=== PATIENT | male | born 1980 | race Caucasian/White ===

== ENCOUNTER 2019-04-29 05:11 | Emergency (ER) | payer BC, SELFPAY ==
[2019-04-29 05:16] VITALS: BP 174/107; PULSE 78; RESP 18; O2SAT 96; BMI 36.9
--- NOTE | 2019-04-29 05:26 | PC.NURSE ---
PATIENT STATES THAT HE WOKE UP AT 0330 TODAY WITH SEVERE BACKPAIN IN HIS LOWER LEFT SIDE OF HIS BACK. PATIENT STATES HE WAS HAVING NUMBNESS IN HIS LEFT FOOT AND TOES. PATIENT STATES HE HAS BEEN HAVING WEAKNESS ALSO IN HIS LOWER EXTREMITIES. PATIENT STATES HE HAS HAD BACK ISSUES SINCE HE WAS A TEENAGER. PATIENT STATES HE DOESN'T KNOW WHAT HAS CAUSED THE PAIN BUT THAT IT IS CHRONIC AND IT HAS NOT BEEN RESOLVED.
[2019-04-29 05:29] VITALS: BP 150/113; PULSE 77; RESP 17; O2SAT 96
--- NOTE | 2019-04-29 05:56 | W.ED.BACK ---
HPI - Back Pain/Injury General: Chief Complaint: Back Pain/Injury Stated Complaint: BACK PAIN Time Seen by Provider: 04/29/19 05:19 History of Present Illness: HPI Narrative: 38-year-old male with a history of back pain presents with sudden onset yesterday of radicular back pain down the left lower extremity. He is having pain into his toes. It was worse this morning. No significant weakness. No loss of bowel or bladder function. Severity: similar to previous episodes Similar Symptoms Previously: Yes Quality: sharp Location: lumbar spine Radiation: left leg below the knee Associated symptoms: Deny abdominal pain, chills, dysuria, fever(s), hematuria, nausea, urinary urgency or vomiting Review of Systems Const: Denies: fever or chills Eyes: Denies: change in vision or blurry vision Card: Denies: chest pain, palpitations, irregular heart rhythm, edema, swelling of feet/ankles, shortness of breath on exertion or shortness of breath when lying down Resp: Denies: shortness of breath, productive cough, non-productive cough or wheezing GI: Denies: abdominal pain, nausea, vomiting, rectal pain, blood in stool or black tarry stool : Denies: difficulty urinating, painful urination, urinary frequency, urinary urgency or blood in urine Musc: Denies: neck pain, back pain, redness or joint warmth Skin/Breast: Denies: rash, itching or redness Neuro: Denies: headache, dizziness, vertigo, confusion or seizure-like activity PFSH ED PFSH: Statuses (acute, chronic, etc) shown below reflect problem list status as previously entered and may not be historically accurate Social History Smoking and tobacco status: never smoked Physical Exam Const: GENERAL APPEARANCE: well developed ORIENTATION/CONSCIOUSNESS: Yes oriented to person, Yes oriented to place and Yes oriented to time HENMT: COMMON NORMALS: normocephalic, external ears normal and external nose normal HEAD & SCALP: normocephalic; no scalp tenderness FACE & SINUS: normal facial exam NOSE: external nose normal and no nasal discharge EXTERNAL EAR: Yes external ears normal THROAT: posterior oropharynx normal; no peritonsillar mass Eye: COMMON NORMALS: PERRL, EOMs intact bilaterally and conjunctivae normal EYELID: eyelids normal CONJUNCTIVA: Yes conjunctivae normal PUPIL: Yes PERRL Neck/C-Spine: COMMON NORMALS: full ROM GENERAL: No tracheal deviation CERVICAL SPINE: Yes normal cervical lordosis and No cervical spine tenderness Chest: COMMONS NORMALS: inspection of chest normal CHEST: No tenderness Resp: COMMON NORMALS: clear to auscultation bilaterally EFFORT & INSPECTION: No tachypneic, No respiratory distress, No retractions, No uses accessory muscles and No tracheal deviation AUSCULTATION: clear to auscultation bilaterally, no rhonchi, no wheezes and lung sounds not diminished Cardio: COMMON NORMALS: regular rate and regular rhythm RATE: regular rate RHYTHM: regular rhythm HEART SOUNDS: no murmurs PERIPHERAL PULSES: radial pulses present GI: INSPECTION: No abdominal distension AUSCULTATION: No hyperactive bowel sounds and No hypoactive bowel sounds PALPATION: No guarding and No rigid PERCUSSION: no dullness to percussion and no tympanic to percussion : COMMON NORMALS: Yes no CVA tenderness BLADDER/KIDNEY EXAM: Yes no CVA tenderness Back/Pelvis: COMMON NORMALS: no CVA tenderness OTHER: Tenderness just left of midline at L4-5. Positive straight leg raise test on the left with some symptoms with SLR on the right as well. Neuro: SENSORIUM/ORIENTATION: Yes oriented to person, Yes oriented to place and Yes oriented to time Psych: COMMON NORMALS: mental status grossly normal Skin: COMMON NORMALS: no rashes or lesions noted GENERAL SKIN EXAM: no rashes or lesions noted Course ED course: Acute lumbar radiculopathy in a patient with prior episodes. Upon further questioning, this patient has an MRI of the lumbar spine scheduled tomorrow. He will be given pain medication, steroid burst for radicular pain, and told to follow-up for his MRI. Vital Signs: Vital signs: Vital Signs Pulse Rate 77 04/29/19 07:01 Respiratory Rate 18 04/29/19 07:01 Blood Pressure 152/101 04/29/19 07:01 Pulse Oximetry 97 04/29/19 07:01 Discharge Plan Discharge Patient Disposition: Home, Self-Care Clinical Impression: Lumbar radiculopathy Condition: Stable Prescriptions: New Medrol (Surjit) 4 mg tablets,dose pack See Rx Instructions .ROUTE .COMPLEX Qty: 21 RF: 0 Percocet 7.5-325 mg tablet 1 tab PO Q6H PRN (Reason: pain) Qty: 14 RF: 0 No Action levothyroxine 175 mcg Tablet 175 mcg PO DAILY RF: 0 Discharge Orders: Discharge Order (Routine); Ordered 04/29/19 Ordered By: Paresh Manzanares Referrals: Fantasma Barreto [Family Provider] - Discharge Diet: Usual diet Discharge Activity: Limit activity as instructed Patient Instructions: Lumbar Disc Herniation (ED) Activity Restrictions/Additional Instructions: Be sure to get your MRI tomorrow. Return for loss of control of the function of your bowel or bladder. Return for fever greater than 100, inability to bear any weight, other concerning symptoms. Interventions: ED Discharge Assessment Last Done: 04/29/19 07:01 Discharge Date/Time: 04/29/19 07:00 Coding Level of Care Code ED Vocal Music Instructor for Baldemar Posada
[2019-04-29 06:32] VITALS: RESP 17
[2019-04-29] MEDS: HYDROmorphone 1 mg/mL INJ 1 mL 2 MG IM (06:32)
[2019-04-29] MEDS: ketorolac 60 mg/2 mL INJ IM (06:32)
[2019-04-29] MEDS: predniSONE 20 mg Tablet 40 MG PO (06:33)
[2019-04-29 06:35] VITALS: BP 157/106; PULSE 76; RESP 16; O2SAT 93
[2019-04-29 07:01] VITALS: BP 152/101; PULSE 77; RESP 18; O2SAT 97
== END 2019-04-29 07:00 | disposition home or self-care (01) ==
PROVIDERS: Emergency Provider Emergency Medicine; Family Provider Family Medicine
DX: M54.16 Radiculopathy, lumbar region (principal)
CPT/HCPCS: 96372; 99281; 99283; J1170; J1885; J7512

== ENCOUNTER 2019-04-30 11:43 | Outpatient (CLI) | payer BC, SELFPAY ==
--- NOTE | 2019-04-30 11:45 | MR_ITS ---
WS: [id number] MRI LUMBAR SPINE NONCONTRAST TECHNIQUE: Sagittal T1, T2 and STIR imaging. Axial T1 and T2 imaging. CLINICAL INFORMATION: RADICULOPATHY/LUMBAR PAIN RADIATING INTO BUTTOCKS COMPARISON: None. FINDINGS: Mild lumbar curve. No acute compression. Left pericentral disc extrusion L4-5 impinges the left subar ticular recess with mild central canal stenosis. Extruded disc material measures 8 mm. L1-L2: Normal. L2-L3: Mild annular bulging. Mild facet arthropathy. Spinal canal and foramen are patent. L3-L4: Mild annular bulging. Mild facet arthropathy. Spinal canal and foramen are patent. L4-L5: Left pericentral disc extrusion measuring 8 mm. This impinges the left subarticular recess and traversing left L5 nerve root. Mild central canal stenosis. Mild proximal left foraminal narrowing. Right foramen is patent. Mild facet arthropathy. L5-S1: L5 is partially sacralized. Spinal canal and foramen are patent. Mild facet arthropathy. Visualized pelvic bony structures: Normal. Paravertebral soft tissues: Normal. MR/MR lumbar spine wo con* [id number] IMPRESSION: 1. Left pericentral and subarticular disc extrusion L4-5 impinges the left sub articular recess and traversing left L5 nerve root. Mild central canal stenosis . Mild proximal left foraminal narrowing. 2. Slight cephalad migration of the left L4-5 disc extrusion. 3. L5 is partially sacralized. 4. No other significant findings.
== END 2019-04-30 11:44 | disposition home or self-care (01) ==
LOC: RADSHAW 11:43
PROVIDERS: Family Provider Family Medicine; PCP Family Medicine; Visit Provider Family Medicine
DX: M51.26 Other intervertebral disc displacement, lumbar region (principal)
CPT/HCPCS: 72148

== ENCOUNTER 2019-05-24 17:42 | Emergency (ER) | payer BC, SELFPAY ==
[2019-05-24 17:49] VITALS: BP 177/127; PULSE 98; RESP 18; O2SAT 99; BMI 35.6
[2019-05-24 18:17] VITALS: BP 151/102; PULSE 96; RESP 18; O2SAT 97
--- NOTE | 2019-05-24 18:20 | ECG_ITS ---
Measurements Intervals [place] Rate: 94 P: 31 SD: 148 QRS: 99 QRSD: 99 T: 19 QT: 328 QTc: 410 SINUS RHYTHM BORDERLINE RIGHT AXIS DEVIATION [QRS AXIS > 90] No previous ECG available for comparison Electronically Signed On 05-24-2019 21:20:07 PHARMACY PICKING TECH by Shelbi Estrada M.D. [id number] f
--- NOTE | 2019-05-24 18:20 | XRR_ITS ---
PROCEDURE INFORMATION: Exam: XR Chest, 2 Views Exam date and time: 05/24/2019 6:55 PM Age: 38 years old Clinical indication: Shortness of breath; Additional info: Cp/sob TECHNIQUE: Imaging protocol: XR of the chest Views: 2 views. COMPARISON: No relevant prior studies available. FINDINGS: Lungs: Unremarkable. No consolidation. Pleural space: Unremarkable. No pleural effusion. No pneumothorax. Heart/Mediastinum: Unremarkable. No cardiomegaly. Bones/joints: Unremarkable. XR/XR chest 2V* [id number] IMPRESSION: No acute findings.
--- NOTE | 2019-05-24 18:21 | W.ED.CHESTPA ---
HPI - Chest Pain General: Chief Complaint: Chest Pain Stated Complaint: CP Time Seen by Provider: 05/24/19 18:12 History of Present Illness: HPI narrative: Patient comes in complaining about some shortness of breath the last 3 to 4 days and headache. Was here in April 29 for back and leg pain. Has been in the ER in [place] he said 2 or 3 times the last couple weeks for back pain and leg pain. Says that some time he takes deep breath it hurts on the right side of his chest the last couple days. Says blood pressures been up each time she is been to the ER. Says he has herniated disc in his low back. Patient does not take blood pressure medicine and he said he recently had a cortisone shot that worked for about a week to help his leg and back pain. Patient also complains about pain in his chest sometimes after he eats couple hours afterward this is gone up on for quite a while been been worse last couple weeks. And this pain that he had in his right chest they seem to be 2 hours after eating. 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 MD complaint: chest pain Onset (ago): day(s) Timing of current episode: episodic Prior episodes: Yes Pain location: right chest Pain radiation: none Severity: mild Quality: shooting Exacerbating factors: nothing Context: new medications Associated symptoms: Reports dyspnea; Deny abdominal pain, fever(s), nausea or vomiting Review of Systems Const: Denies: fever, chills or body aches Eyes: Denies: change in vision or blurry vision ENMT: Denies: throat pain or nasal congestion Card: Reports: chest pain; Denies: shortness of breath on exertion Resp: Reports: shortness of breath GI: Denies: abdominal pain, nausea or vomiting : Denies: difficulty urinating Musc: Denies: extremity pain Skin/Breast: Denies: rash Neuro: Denies: headache Psych: Denies: anxiety or depression Natan/Lymph: Denies: easy bruising PFSH ED PFSH: Social History Smoking and tobacco status: never smoked Physical Exam Const: COMMON NORMALS: no apparent distress, average body habitus and oriented x3 HENMT: COMMON NORMALS: normocephalic HEAD & SCALP: normal to inspection and normocephalic FACE & SINUS: normal facial exam Eye: COMMON NORMALS: conjunctivae normal GENERAL EYE: normal appearance of both eyes CONJUNCTIVA: Yes conjunctivae normal Neck/C-Spine: COMMON NORMALS: no JVD Chest: COMMONS NORMALS: inspection of chest normal Resp: COMMON NORMALS: normal respiratory effort and clear to auscultation bilaterally AUSCULTATION: clear to auscultation bilaterally Cardio: COMMON NORMALS: no JVD, regular rate and regular rhythm RATE: regular rate RHYTHM: regular rhythm GI: COMMON NORMALS: normal to inspection, nondistended, normoactive bowel sounds Extremity: COMMON NORMALS: normal to inspection and full ROM Neuro: COMMON NORMALS: oriented x3 Course Vital Signs: Vital signs: Vital Signs Pulse Rate 77 05/24/19 18:35 Respiratory Rate 18 05/24/19 18:35 Blood Pressure 138/81 05/24/19 18:35 Pulse Oximetry 98 05/24/19 18:35 MDM - Chest Pain MDM Narrative: Medical decision making narrative: Discussed case with Dr. Parra Lab Data: Labs: Lab Results 05/24/19 05/24/19 05/24/19 Range/Units 18:30 18:30 18:30 WBC 8.3 (4.0-10.0) 10^3/ uL RBC 5.66 H (4.1-5.3) 10^6/u L Hgb 17.3 H (11.7-16.6) g/dL Hct 49.4 (42.0-52.0) % MCV 87.3 (80-94) fL MCH 30.6 (28.0-34.0) pg MCHC 35.0 (30.0-36.0) g/dL RDW 12.1 (12.1-15.1) % Plt Count 264 (130-400) 10^3/c mm MPV 10.3 (7.4-10.4) fL Neut % (Auto) 69.9 % Lymph % (Auto) 13.0 % [place] % (Auto) 13.1 % Eos % (Auto) 2.7 % Baso % (Auto) 0.8 % Neut # (Auto) 5.8 (1.8-7.7) 10^3/u L Lymph # (Auto) 1.1 (0.8-4.8) 10^3/u L [place] # (Auto) 1.1 H (0.2-0.9) 10^3/u L Eos # (Auto) 0.2 (0.0-0.8) 10^3/u L Baso # (Auto) 0.1 (0.0-0.1) 10^3/u L Nucleated RBC % (a uto) 0 % Nucleated RBCs # 0.0 /100WBC Sodium 136 (136-145) mmol/L Potassium 3.8 (3.5-5.1) mmol/L Chloride 99 (98-107) mmol/L Carbon Dioxide 24 (22-29) mmol/L Anion Gap 16.8 (5-19) BUN 17 (6-20) mg/dL Creatinine 1.2 (0.7-1.2) mg/dL GFR Calculation 67.8 L (90-130) mL/min Glucose 82 (65-115) mg/dL Calcium 10.0 (8.5-10.5) mg/dL Total Bilirubin 0.3 (0.15-1.2) mg/dL AST 24 (0-40) U/L ALT 46 H (0-41) U/L Alkaline Phosphata se 64 (40-130) IU/L Troponin T Gen 5 n g/L 10 (0-15) ng/mL Total Protein 7.1 (6.6-8.7) g/dL Albumin 4.6 (3.5-5.2) g/dL Globulin 2.5 (1.3-4.6) g/dL EKG Data^: EKG 1: EKG interpretation date: 05/24/19 Interpretation: NSR, 0 Acute signed off by Dr. Tiwari Discharge Plan Discharge Patient Disposition: Home, Self-Care Clinical Impression: Atypical chest pain, Anxiety, Chest pain due to GERD Condition: Stable Prescriptions: New metoprolol succinate 25 mg capsule,sprinkle,ER 24hr 25 mg PO DAILY Qty: 14 RF: 0 Prilosec OTC 20 mg tablet,delayed release (DR/EC) 20 mg PO DAILY Qty: 30 RF: 0 No Action levothyroxine 175 mcg Tablet 175 mcg PO DAILY RF: 0 Multiple Vitamins Tablet 1 tab PO DAILY RF: 0 aspirin 325 mg Tablet 325 mg PO BID PRN (Reason: Pain) RF: 0 Discharge Orders: Discharge Order (Routine); Ordered 05/24/19 Ordered By: Toy Jones Referrals: Fantasma Barreto [Primary Care Provider] - Coding Level of Care Code ED Leadership Development Instructor for Chg Fwd Exam Comprehensive
[2019-05-24 18:35] VITALS: BP 138/81; PULSE 77; RESP 18; O2SAT 98
[2019-05-24 18:43] LABS: Basophils # 0.1 10^3/uL (0.0-0.1); Basophils % 0.8 %; Eosinophils # 0.2 10^3/uL (0.0-0.8); Eosinophils % 2.7 %; Hematocrit 49.4 % (42.0-52.0); Hemoglobin 17.3 g/dL (11.7-16.6); Lymphocytes # 1.1 10^3/uL (0.8-4.8); Mean Corpuscular Hemoglobin 30.6 pg (28.0-34.0); Mean Corpuscular Volume 87.3 fL (80-94); Mean Platelet Volume 10.3 fL (7.4-10.4); Monocytes # 1.1 10^3/uL (0.2-0.9); Monocytes % 13.1 %; Neutrophils # 5.8 10^3/uL (1.8-7.7); Neutrophils % 69.9 %; Nucleated Red Blood Cells % 0 %; Platelet Count 264 10^3/cmm (130-400); Red Blood Count 5.66 10^6/uL (4.1-5.3); Red Cell Distribution Width 12.1 % (12.1-15.1); White Blood Count 8.3 10^3/uL (4.0-10.0)
[2019-05-24 19:00] VITALS: BP 136/77; PULSE 76; RESP 17; O2SAT 97
[2019-05-24 19:02] LABS: Alanine Aminotransferase 46 U/L (0-41); Albumin Level 4.6 g/dL (3.5-5.2); Alkaline Phosphatase 64 IU/L (40-130); Anion Gap 16.8 (5-19); Aspartate Amino Transferase 24 U/L (0-40); Blood Urea Nitrogen 17 mg/dL (6-20); Carbon Dioxide 24 mmol/L (22-29); Chloride 99 mmol/L (98-107); Globulin 2.5 g/dL (1.3-4.6); Glomerular Filtration Rate 67.8 mL/min (90-130); Glucose 82 mg/dL (65-115); Potassium 3.8 mmol/L (3.5-5.1); Sodium 136 mmol/L (136-145); Total Bilirubin 0.3 mg/dL (0.15-1.2); Total Protein 7.1 g/dL (6.6-8.7)
[2019-05-24 19:05] LABS: Troponin T (5th) Once 10 ng/mL (0-15)
--- NOTE | 2019-05-24 19:22 | PC.NURSE ---
Introduced self to patient and initiated vital signs. Patient presents A&O x 4. NAD, ABCs intact, MAEW and agreeable to treatment. Respirations are even and unlabored. Pt states that the chief complaint for the ER visit today is due toa chest pain and elevated BP. IV observed in right AC. Pt denies any vision disturbances or lightheadedness. Bed left in lowest position in semi-fowlers with side rails up.Reassured patient of needs and will continue to monitor.
[2019-05-24 19:36] VITALS: BP 153/86; PULSE 77; RESP 16; O2SAT 96
== END 2019-05-24 19:36 | disposition home or self-care (01) ==
PROVIDERS: Emergency Provider Nurse Practitioner Family; Family Provider Family Medicine; PCP Family Medicine
DX: K21.9 Gastro-esophageal reflux disease without esophagitis (principal); F41.9 Anxiety disorder, unspecified
CPT/HCPCS: 36415; 71046; 80053; 84484; 85025; 93005; 99282; 99283

== ENCOUNTER 2020-03-15 08:33 | Emergency (ER) | payer BC, SELFPAY ==
[2020-03-15 08:40] VITALS: BP 160/98; PULSE 82; RESP 18; TEMP 36.3; O2SAT 95; BMI 38.2
--- NOTE | 2020-03-15 08:40 | ED_ITS ---
HPI - Chest Pain General: Chief Complaint: Chest Pain Stated Complaint: RIB/CHEST PAIN Time Seen by Provider: 03/15/20 08:39 Source: patient Mode of arrival: ambulatory Limitations: no limitations History of Present Illness: HPI narrative: 39-year-old male patient comes in with midepigastric abdominal pain that has been waxing and waning over the last 3 months. Patient is seen his primary care provider but continues to have discomfort. Patient has a history of abdominal surgeries including a cholecystectomy, partial colectomy due to trauma. Patient takes medicines for hypothyroidism. Patient has been tried on some steroids and medications for GERD with minimal to no relief. Associated symptoms: Reports abdominal pain Review of Systems General: Reports: 10 or more systems reviewed and unremarkable except in HPI and below GI: Reports: abdominal pain PFSH ED PFSH: Social History Smoking and tobacco status: never smoked Physical Exam Const: COMMON NORMALS: no acute distress and patient oriented x3 GENERAL APPEARANCE: cooperative HENMT: COMMON NORMALS: normocephalic and Normal external nose present HEAD & SCALP: normal to inspection and normocephalic NOSE: Normal external nose present MOUTH: Normal oral and palatal mucosa present Eye: GENERAL EYE: appearance normal, both eyes and all related structures Neck/C-Spine: COMMON NORMALS: full ROM Lymph: LYMPHATIC: no lymphadenopathy noted Chest: COMMONS NORMALS: normal inspection of the chest Resp: COMMON NORMALS: normal respiratory effort EFFORT & INSPECTION: Yes able to speak in complete sentences Cardio: COMMON NORMALS: regular rate and regular rhythm RATE: regular rate RHYTHM: regular rhythm GI: INSPECTION: Yes other (scar to left lower abd 2nd to colectomy) AUSCULTATION: Yes normoactive bowel sounds PALPATION: Yes Tenderness to palpation present (GI) (epigastric) Back/Pelvis: COMMON NORMALS: thoracic and lumbar spine normal to inspection Extremity: COMMON NORMALS: normal to inspection Neuro: COMMON NORMALS: patient oriented x3 and moves all extremities Psych: COMMON NORMALS: mental status grossly normal and cooperative Skin: COMMON NORMALS: no rashes or lesions noted GENERAL SKIN EXAM: no rashes or lesions noted Course Vital Signs: Vital signs: Vital Signs Temperature 97.3 F L 03/15/20 08:40 Pulse Rate 75 03/15/20 10:25 Respiratory Rate 18 03/15/20 10:25 Blood Pressure 124/85 03/15/20 10:25 Pulse Oximetry 95 03/15/20 10:25 MDM - Chest Pain MDM Narrative: Medical decision making narrative: 39-year-old male comes in with epigastric tenderness and pain. Patient also reports some abdominal bloating. Exam notes abdomen is soft epigastric tenderness is noted. Skin is warm and dry. Vital signs are normal. Differential diagnosis includes not limited to gastritis, hiatal hernia, pancreatitis, bowel obstruction. Laboratory values were unremarkable. CT scan of the abdomen and pelvis noted incidental 1 mm nodule to the right lung, some gastritis, diverticulosis, and surgical changes for cholecystectomy and bowel resection. Reviewed exam with patient recommended treatment for gastritis. Patient reported understanding agreed to plan with need for follow-up. Lab Data: Labs: Lab Results 03/15/20 03/15/20 Range/Units 09:23 09:23 WBC 4.6 (4.0-10.0) 10^3/ uL RBC 5.33 H (4.1-5.3) 10^6/u L Hgb 16.0 (11.7-16.6) g/dL Hct 48.0 (42.0-52.0) % MCV 90.1 (80-94) fL MCH 30.0 (28.0-34.0) pg MCHC 33.3 (30.0-36.0) g/dL RDW 11.7 L (12.1-15.1) % Plt Count 174 (130-400) 10^3/c mm MPV 10.8 H (7.4-10.4) fL Neut % (Auto) 70.9 % Lymph % (Auto) 13.6 % [place] % (Auto) 11.4 % Eos % (Auto) 2.6 % Baso % (Auto) 1.3 % Neut # (Auto) 3.28 (1.8-7.7) 10^3/u L Lymph # (Auto) 0.6 L (0.8-4.8) 10^3/u L [place] # (Auto) 0.5 (0.2-0.9) 10^3/u L Eos # (Auto) 0.1 (0.0-0.8) 10^3/u L Baso # (Auto) 0.1 (0.0-0.1) 10^3/u L Nucleated RBC % (a uto) 0 % Nucleated RBCs # 0.0 /100WBC Sodium 138 (136-145) mmol/L Potassium 4.2 (3.5-5.1) mmol/L Chloride 104 (98-107) mmol/L Carbon Dioxide 27 (22-29) mmol/L Anion Gap 11.2 (5-19) BUN 13 (6-20) mg/dL Creatinine 1.1 (0.7-1.2) mg/dL Glucose 106 (65-115) mg/dL Calculated Osmolal ity 287 (285-295) mOsm/k g Calcium 9.2 (8.5-10.5) mg/dL Total Bilirubin 0.3 (0.15-1.2) mg/dL AST 36 (0-40) U/L Alkaline Phosphata se 58 (40-130) IU/L Total Protein 6.6 (6.6-8.7) g/dL Albumin 4.0 (3.5-5.2) g/dL Globulin 2.6 (1.3-4.6) g/dL Lipase 34 (13-60) U/L EKG Data^: EKG 1: Attestation: I personally reviewed and interpreted this EKG as follows: (EKG read at 850, sinus rhythm, normal EKG, regular rate at 78 bpm, no ectopy or ST elevation. No prior exam was available for comparison.) Discharge Plan Discharge Patient Disposition: Home Clinical Impression: Gastritis Qualifiers: Gastritis type: unspecified gastritis Chronicity: unspecified Gastritis bleeding: without bleeding Qualified Code(s): K29.70 - Gastritis, unspecified, without bleeding Condition: Stable Prescriptions: New omeprazole 40 mg capsule,delayed release(DR/EC) 40 mg PO DAILY 28 Days Qty: 28 RF: 0 No Action levothyroxine 175 mcg Tablet 175 mcg PO DAILY RF: 0 Multiple Vitamins Tablet 1 tab PO DAILY RF: 0 aspirin 325 mg Tablet 325 mg PO BID PRN (Reason: Pain) RF: 0 metoprolol succinate 25 mg capsule,sprinkle,ER 24hr 25 mg PO DAILY Qty: 14 RF: 0 Prilosec OTC 20 mg tablet,delayed release (DR/EC) 20 mg PO DAILY Qty: 30 RF: 0 Discharge Orders: Discharge ED (Routine); Ordered 03/15/20 Ordered By: Carlos Mcclendon Referrals: Fantasma Barreto [Primary Care Provider] - Discharge Diet: Usual diet Discharge Activity: Resume usual activity Patient Instructions: Diet for Ulcers and Gastritis (ED) Activity Restrictions/Additional Instructions: Take medication in the morning prior to breakfast. Drink plenty of fluids. Activity as tolerated. Follow-up with primary care for further treatment and evaluation. Return to the emergency department for new concerns. Coding Level of Care Code ED Captain Fire Prevention [employer] for Baldemar Posada Exam Comprehensive
--- NOTE | 2020-03-15 08:46 | ECG_ITS ---
[facility] Test Date: 2020-03-15 Pat Name: Shade Ribeiro Department: Room: Gender: Male Radio Interference Trouble Shooter: : 1980 Requested By: Carlos Tellez Order Number: [id number] Scott MD: Shelbi Estrada M.D. Measurements Intervals [place] Rate: 78 P: 25 MA: 195 QRS: 49 QRSD: 103 T: 11 QT: 362 QTc: 413 Interpretive Statements SINUS RHYTHM Compared to ECG 05/24/2019 17:53:17 No significant changes Electronically Signed On 03-15-2020 21:58:16 DINING CAR HOP by Shelbi Estrada M.D. [id number] f
[2020-03-15 08:47] VITALS: BP 142/88; PULSE 79; RESP 18; O2SAT 96
--- NOTE | 2020-03-15 08:47 | CTR_ITS ---
PROCEDURE INFORMATION: Exam: CT Abdomen And Pelvis With Contrast Exam date and time: 03/15/2020 9:03 AM Age: 39 years old Clinical indication: Abdominal pain; Epigastric; Prior surgery; Surgery date: 6+ months; Surgery type: HX of 8 colon removal d/t trauma, gb, appy; Additional info: Epigastric abd pain TECHNIQUE: Imaging protocol: Computed tomography of the abdomen and pelvis with intravenous contrast. Radiation optimization: All CT scans at this facility use at least one of these dose optimization techniques: automated exposure control; mA and/or kV adjustment per patient size (includes targeted exams where dose is matched to clinical indication); or iterative reconstruction. Contrast material: OMNIPAQUE 300; Contrast volume: 95 ml; Contrast route: INTRAVENOUS (IV); COMPARISON: No relevant prior studies available. RADIATION DOSE METRICS: Total DLP (mGy-cm): 2012.93 FINDINGS: Lungs: Mild interstitial prominence. Multiple 1 mm right middle lobe nodules. For patients at low risk (minimal or absent history of smoking and of other known risk factors), no routine follow-up is indicated. For patients at high risk (history of smoking or of other known risk factors), consider optional CT Chest at 12 months. Liver: Fatty infiltration of the liver. Gallbladder and bile ducts: Status post cholecystectomy. Pancreas: No pancreatic mass or ductal dilatation. Spleen: Enlarged spleen measuring 14.4 cm in length. Adrenal glands: Unremarkable adrenals. Kidneys and ureters: 4.1 cm right renal cyst. No hydronephrosis. Stomach and bowel: Questionable wall thickening in the nondistended stomach. Localized bowel dilatation at the level of the ligament of Treitz postoperative change at the rectosigmoid junction. Diverticula, without pericolonic inflammation. Appendix: Status post appendectomy. Intraperitoneal space: No free fluid. No free fluid. Vasculature: Normal caliber of the abdominal aorta. Lymph nodes: Subcentimeter lymph nodes. Urinary bladder: Normal bladder morphology. Reproductive: Unremarkable as visualized. Bones/joints: Transitional vertebra at the lumbosacral junction. Disc bulging and mild degenerative change prior CT/CT abdomen pelvis w con* [id number] IMPRESSION: 1. No acute inflammatory process in the abdomen or pelvis. 2. Additional findings as described above. COMMENTS: Consistent with the [employer]'s Incidental Findings Committee white paper (J Am Rosemarie Radiol 2018): Any incidental renal lesion less than 1 cm or classified as too small to characterize, or any incidental cystic renal lesion characterized as simple-appearing, is likely benign. No follow-up imaging is recommended for these lesions per consensus recommendations based on imaging criteria. Radiation Dose CTDIVOL = (mGy): DLP = 2013.93 (mGy-cm)
[2020-03-15] MEDS: iohexol 300 mg/mL 100 mL Btl IV (09:12)
[2020-03-15 09:29] VITALS: BP 128/90; PULSE 73; RESP 95; O2SAT 95
[2020-03-15 09:52] LABS: Basophils # 0.1 10^3/uL (0.0-0.1); Basophils % 1.3 %; Eosinophils # 0.1 10^3/uL (0.0-0.8); Eosinophils % 2.6 %; Lymphocytes # 0.6 10^3/uL (0.8-4.8); Lymphocytes % 13.6 %; Mean Corpuscular HGB Conc 33.3 g/dL (30.0-36.0); Mean Corpuscular Volume 90.1 fL (80-94); Mean Platelet Volume 10.8 fL (7.4-10.4); Monocytes # 0.5 10^3/uL (0.2-0.9); Monocytes % 11.4 %; Neutrophils # 3.28 10^3/uL (1.8-7.7); Neutrophils % 70.9 %; Nucleated Red Blood Cells % 0 %; Platelet Count 174 10^3/cmm (130-400); Red Blood Count 5.33 10^6/uL (4.1-5.3); Red Cell Distribution Width 11.7 % (12.1-15.1); White Blood Count 4.6 10^3/uL (4.0-10.0)
[2020-03-15 10:25] VITALS: BP 124/85; PULSE 75; RESP 18; O2SAT 95
[2020-03-15 10:36] LABS: Alanine Aminotransferase 63 U/L (0-41); Alkaline Phosphatase 58 IU/L (40-130); Anion Gap 11.2 (5-19); Aspartate Amino Transferase 36 U/L (0-40); Blood Urea Nitrogen 13 mg/dL (6-20); Calcium 9.2 mg/dL (8.5-10.5); Carbon Dioxide 27 mmol/L (22-29); Chloride 104 mmol/L (98-107); Globulin 2.6 g/dL (1.3-4.6); Glomerular Filtration Rate 74.5 mL/min (90-130); Glucose 106 mg/dL (65-115); Lipase 34 U/L (13-60); Osmolality Calculated 287 mOsm/kg (285-295); Potassium 4.2 mmol/L (3.5-5.1); Sodium 138 mmol/L (136-145); Total Bilirubin 0.3 mg/dL (0.15-1.2); Total Protein 6.6 g/dL (6.6-8.7)
[2020-03-15 10:52] VITALS: BP 137/85; PULSE 67; RESP 18; TEMP 37.1; O2SAT 96
== END 2020-03-15 10:54 | disposition home or self-care (01) ==
PROVIDERS: Emergency Provider Nurse Practitioner Family; PCP Family Medicine
DX: K29.70 Gastritis, unspecified, without bleeding (principal); Z79.82 Long term (current) use of aspirin
CPT/HCPCS: 12345; 74177; 80053; 83690; 85025; 93005; 99283; Q9967

== ENCOUNTER 2020-06-14 07:29 | Emergency (ER) | payer OTHER, SELFPAY ==
[2020-06-14 07:30] VITALS: BP 150/90; PULSE 73; RESP 16; TEMP 36.5; O2SAT 97; BMI 34.7
--- NOTE | 2020-06-14 08:01 | W.ED.NECK ---
HPI - Neck Pain/Injury General: Chief Complaint: Neck Pain/Injury Stated Complaint: Neck Pain Time Seen by Provider: 06/14/20 07:39 Source: patient Mode of arrival: ambulatory Limitations: no limitations History of Present Illness: HPI Narrative: 39-year-old male complaining of right neck pain for the last 4 to 5 days. Sudden onset while at rest, associated with dizziness, nausea, vomiting, generalized weakness, and headache. No recent head or neck injury, car accident, or neck manipulation. He did have acupuncture performed on his right ear about a week ago, but there was no additional manipulation, massage, or abnormal positioning of his neck and head. He had similar symptoms several weeks ago, but it resolved almost immediately. The pain has continued to worsen, extends up to his right sabianist and occiput. He denies any facial weakness or numbness. He does have some paresthesias of the anterior portion of his tongue. No vision changes. No focal weakness or numbness in his extremities. He states he is generally not been feeling well for the last 3 to 4 months. He has had a 50 pound weight loss-has started a fairly restrictive diet, trying to get some relief from his chronic IBS type symptoms. He said he was recently diagnosed with alpha-gal, and has stopped eating all beef, but his symptoms have not really improved. Denies drug or alcohol use. No night sweats or fevers. No rash. MD complaint: neck pain Onset (ago): day(s) Associated symptoms: Reports dizziness, headache(s) and nausea; Denies dysphagia or difficulty walking Review of Systems General: Reports: 10 or more systems reviewed and unremarkable except in HPI and below Const: Reports: body aches, change in appetite, change in weight and fatigue; Denies: fever(s), chills, night sweats or diaphoresis Eyes: Denies: change in vision, blurry vision or blind spots ENMT: Denies: uvular edema, enlarged tonsils, odynophagia, swelling of lips/tongue, ear or mastoid pain, ear discharge, change in hearing or tinnitus Card: Denies: chest pain, palpitations, irregular heart rhythm or edema Resp: Denies: dyspnea, productive cough, wheezing or pain on inspiration GI: Reports: abdominal pain and nausea; Denies: vomiting, hematemesis, dysphagia, heartburn, diarrhea or constipation : Denies: difficulty urinating, dysuria or urinary frequency Musc: Reports: neck pain, joint pain, joint stiffness and muscle cramps; Denies: extremity pain, extremity swelling, joint swelling, joint redness or joint warmth Skin/Breast: Denies: rash, pruritus, erythema, skin pain, skin tenderness, skin swelling or sores Neuro: Reports: headache(s) and dizziness; Denies: numbness in extremities, weakness in extremities, lack of coordination, difficulty walking, frequent falls, vertigo or confusion Endo: Reports: tired all the time; Denies: polyuria or polydipsia Natan/Lymph: Denies: easy bruising, easy bleeding or petechiae All/Imm: Denies: urticaria or facial swelling PFSH ED PFSH: Medical History Abdominal pain Family History Denies family history of Anesthesia complication Bleeding disorder Social History Smoking and tobacco status: never smoked Physical Exam Const: COMMON NORMALS: patient oriented x3 GENERAL APPEARANCE: cooperative, well kempt and anxious; not lethargic, not ill appearing and not frail appearing NUTRITIONAL APPEARANCE: overweight ORIENTATION/CONSCIOUSNESS: Yes awake, Yes oriented to person, Yes oriented to place and Yes oriented to time; not lethargic HENMT: COMMON NORMALS: normocephalic, atraumatic, EAC's normal and Normal external nose present HEAD & SCALP: normocephalic and atraumatic FACE & SINUS: normal facial exam and face symmetric NOSE: Normal external nose present EXTERNAL EAR: Yes external ear abnormal (Several puncture wounds from acupuncture, within helix) Abnormal external ear present: other; no auricular hematoma and no auricular tenderness; no mastoids normal EXTERNAL AUDITORY CANAL: EAC's normal MOUTH: Normal oral and palatal mucosa present, lip normal, tongue normal and moist mucous membranes abnormal THROAT: posterior oropharynx normal, tonsils normal and uvula midline; no uvular edema Eye: COMMON NORMALS: negative for conjunctivae normal and no scleral icterus GENERAL EYE: proptosis (Right eye, baseline) VISUAL ACUITY: Yes visual acuity right eye (Light only, baseline) ALIGNMENT: No alignment normal and Yes other (Baseline) EYELID: abnormal eyelids and no eyelid abnormalities CONJUNCTIVA: No conjunctivae normal SCLERA: abnormal sclerae CORNEA: No corneas normal EOM: No movement deficit and No Nystagmus present Neck/C-Spine: COMMON NORMALS: full ROM, no lymphadenopathy, supple, no JVD and Thyroid normal GENERAL: No lymphadenopathy, Yes tender, No tracheal deviation and Yes Mass present (neck) THYROID: Thyroid normal CAROTIDS: Yes Carotid tenderness present Carotid tenderness laterality details: Right OTHER: Swelling/fullness of the right SCM as compared to the left. Lymph: LYMPHATIC: no lymphadenopathy noted Chest: COMMONS NORMALS: normal palpation of entire chest wall Resp: COMMON NORMALS: normal respiratory effort, No retractions, No use of accessory muscles and clear to auscultation bilaterally AUSCULTATION: clear to auscultation bilaterally Cardio: COMMON NORMALS: no JVD, regular rate and regular rhythm RATE: regular rate RHYTHM: regular rhythm GI: COMMON NORMALS: Normal to inspection, nondistended, normoactive bowel sounds present, Soft to palpation and non-tender PALPATION: Yes Soft to palpation Extremity: COMMON NORMALS: normal to inspection, full ROM and capillary refill normal Neuro: COMMON NORMALS: patient oriented x3, moves all extremities, no focal motor deficits and no sensory deficits noted SENSORIUM/ORIENTATION: Yes oriented to person, Yes oriented to place, Yes oriented to time and No lethargic SPEECH: speech normal GAIT: Yes Normal gait present MOTOR EXAM: 5/5 motor strength present throughout Psych: APPEARANCE: Yes well kempt MEMORY/COGNITION: Yes memory grossly intact and Yes cognition grossly intact INSIGHT: Good insight present (Psych) Skin: COMMON NORMALS: no rashes or lesions noted and turgor normal GENERAL SKIN EXAM: no rashes or lesions noted, turgor normal, ecchymosis and erythema Course Vital Signs: Vital signs: Vital Signs Temperature 97.7 F 06/14/20 07:30 Pulse Rate 98 06/14/20 11:36 Respiratory Rate 18 06/14/20 11:36 Blood Pressure 150/90 06/14/20 07:30 Pulse Oximetry 99 06/14/20 11:36 MDM - Neck Pain/Injury MDM Narrative: Medical decision making narrative: 39-year-old male with multiple symptoms worsening over the past several months, primarily coming to the ED today with right neck pain was sudden in onset about 4 to 5 days ago. No clear neuro deficits, however the patient had a lot of pain on palpation over the carotid artery on the right and is reporting subjective dizziness, headache etc., so CTA head and neck was done to rule out dissection, aneurysm, or other acute vascular problem. No acute abnormalities on baseline labs. CTA was negative for any acute abnormalities. Discussed all these results with the patient, recommended that he follow-up with his PCP for further work-up to try and get to the bottom of why he has been feeling so unwell for the past few months. Recommended that he return immediately to the ER if he has any worsening neuro symptoms such as difficulty with balance, sudden vision change, weakness and numbness of his arm, face, difficulty speaking, or any other sudden changes. Differential Diagnosis: Neck Differential Diagnosis: Likely vertebral artery dissection, torticollis and strain of neck muscle Medical Records: Attestation: I reviewed the patient's medical records. Lab Data: Attestation: I reviewed the patient's lab results. Labs: Lab Results 06/14/20 06/14/20 06/14/20 Range/Units 09:10 09:10 09:29 WBC 6.0 (4.0-10.0) 10^3/ uL RBC 5.89 H (4.1-5.3) 10^6/u L Hgb 17.7 H (11.7-16.6) g/dL Hct 53.1 H (42.0-52.0) % MCV 90.2 (80-94) fL MCH 30.1 (28.0-34.0) pg MCHC 33.3 (30.0-36.0) g/dL RDW 12.0 L (12.1-15.1) % Plt Count 210 (130-400) 10^3/c mm MPV 10.9 H (7.4-10.4) fL Neut % (Auto) 78.5 % Lymph % (Auto) 10.3 % [place] % (Auto) 8.9 % Eos % (Auto) 1.3 % Baso % (Auto) 0.7 % Neut # (Auto) 4.67 (1.8-7.7) 10^3/u L Lymph # (Auto) 0.6 L (0.8-4.8) 10^3/u L [place] # (Auto) 0.5 (0.2-0.9) 10^3/u L Eos # (Auto) 0.1 (0.0-0.8) 10^3/u L Baso # (Auto) 0.0 (0.0-0.1) 10^3/u L Nucleated RBC % (a uto) 0 % Nucleated RBCs # 0.0 /100WBC Sodium 138 (136-145) mmol/L Potassium 4.4 (3.5-5.1) mmol/L Chloride 102 (98-107) mmol/L Carbon Dioxide 27 (22-29) mmol/L Anion Gap 13.4 (5-19) BUN 18 (6-20) mg/dL Creatinine 1.0 (0.7-1.2) mg/dL GFR Calculation 83.2 L (90-130) mL/min Glucose 89 (65-115) mg/dL Calculated Osmolal ity 287 (285-295) mOsm/k g Calcium 9.8 (8.5-10.5) mg/dL Magnesium 2.2 (1.7-2.3) mg/dL Total Bilirubin 0.4 (0.15-1.2) mg/dL AST 28 (0-40) U/L ALT 54 H (0-41) U/L Alkaline Phosphata se 70 (40-130) IU/L Lactate Dehydrogen ase 159 (135-225) U/L C-Reactive Protein 5.5 H (0.0-4.9) mg/L Total Protein 7.8 (6.6-8.7) g/dL Albumin 4.5 (3.5-5.2) g/dL Globulin 3.3 (1.3-4.6) g/dL TSH 3.64 (0.27-4.20) uIU/ mL Urine Color Yellow (Yellow) Urine Appearance Clear (CLEAR) Urine pH 6 (5-7) Ur Specific Gravit y 1.020 (1.005-1.030) Urine Protein Neg (Negative) Urine Glucose (UA) Norm (Normal) Urine Ketones Negative (Negative) Urine Blood Neg (Negative) Urine Nitrate Negative (Negative) Urine Bilirubin Neg (Negative) Urine Urobilinogen Norm (Negative) mg/dL Ur Leukocyte Jessica ase Negative (Negative) Discharge Plan Discharge Patient Disposition: Home Clinical Impression: Neck pain on right side Strain of neck muscle Qualifiers: Encounter type: initial encounter Qualified Code(s): S16.1XXA - Strain of muscle, fascia and tendon at neck level, initial encounter Condition: Stable Prescriptions: No Action Zyzal 1 tab PO DAILY RF: 0 Discharge Orders: Discharge ED (Routine); Ordered 06/14/20 Ordered By: Danielle Diaz Referrals: Fantasma Barreto [Primary Care Provider] - Discharge Diet: Advance as tolerated Discharge Activity: Resume usual activity Patient Instructions: Normal Exam (ED) Activity Restrictions/Additional Instructions: Make sure to follow-up with your primary care doctor in the next 3 days to discuss further testing if your symptoms do not improve. You can take [id number] Tylenol or ibuprofen for pain. Do not apply pressure or massage to the painful area-it could make pain worse and cause injury to your vessels. Return immediately to the ER if you develop worsening pain, neck stiffness, vision changes, nausea and vomiting, or difficulty with balance. Coding Level of Care Code ED Customer Quality Engineer for Baldemar Posada
--- NOTE | 2020-06-14 08:54 | CTR_ITS ---
PROCEDURE INFORMATION: Exam: CT Angiography Head With Contrast, Arteries Exam date and time: 06/14/2020 9:07 AM Age: 39 years old Clinical indication: Headache and other: Right side neck pain; Additional info: Right neck pain, dizzy, headache TECHNIQUE: Imaging protocol: Computed tomography angiography of the head with intravenous contrast. 3D rendering (Not supervised by radiologist): MIP and/or 3D reconstructed images were created by the technologist. Radiation optimization: All CT scans at this facility use at least one of these dose optimization techniques: automated exposure control; mA and/or kV adjustment per patient size (includes targeted exams where dose is matched to clinical indication); or iterative reconstruction. Contrast material: OMNI 350; Contrast volume: 95 ml; Contrast route: INTRAVENOUS (IV); COMPARISON: No relevant prior studies available. RADIATION DOSE METRICS: Total DLP (mGy-cm): 4889.61 FINDINGS: ANTERIOR CIRCULATION: Right internal carotid artery: Unremarkable. Intracranial segment is patent with no significant stenosis. No aneurysm. Right middle cerebral artery: Unremarkable. No occlusion or significant stenosis. No aneurysm. Right anterior cerebral artery: Unremarkable. No occlusion or significant stenosis. No aneurysm. Left internal carotid artery: Unremarkable. Intracranial segment is patent with no significant stenosis. No aneurysm. Left middle cerebral artery: Unremarkable. No occlusion or significant stenosis. No aneurysm. Left anterior cerebral artery: Unremarkable. No occlusion or significant stenosis. No aneurysm. POSTERIOR CIRCULATION: Right vertebral artery: Unremarkable. No occlusion or significant stenosis. No aneurysm. Left vertebral artery: Unremarkable. No occlusion or significant stenosis. No aneurysm. Basilar artery: Unremarkable. No occlusion or significant stenosis. No aneurysm. Right posterior cerebral artery: Unremarkable. No occlusion or significant stenosis. No aneurysm. Left posterior cerebral artery: Unremarkable. No occlusion or significant stenosis. No aneurysm. Brain: No definite mass, mass effect, or midline shift. Cerebral ventricles: No ventriculomegaly. Paranasal sinuses: Thickening inferior left maxillary sinus. Evidence prior left nasal antral window. IMPRESSION: No vascular stenosis or occlusion. PROCEDURE INFORMATION: Exam: CT Angiography Neck With Contrast Exam date and time: 06/14/2020 9:07 AM Age: 39 years old Clinical indication: Headache and other: Right side neck pain; Additional info: Right neck pain, dizzy, headache TECHNIQUE: Imaging protocol: Computed tomography angiography of the neck with intravenous contrast. 3D rendering (Not supervised by radiologist): MIP and/or 3D reconstructed images were created by the technologist. Radiation optimization: All CT scans at this facility use at least one of these dose optimization techniques: automated exposure control; mA and/or kV adjustment per patient size (includes targeted exams where dose is matched to clinical indication); or iterative reconstruction. Contrast material: OMNI 350; Contrast volume: 95 ml; Contrast route: INTRAVENOUS (IV); COMPARISON: No relevant prior studies available. RADIATION DOSE METRICS: Total DLP (mGy-cm): 4889.61 FINDINGS: Right common carotid artery: No stenosis. No dissection or occlusion. Right internal carotid artery: No stenosis of the extracranial segment. No dissection or occlusion. Right external carotid artery: No occlusion or stenosis of the origin. Right vertebral artery: No stenosis. No dissection or occlusion. Left common carotid artery: No stenosis. No dissection or occlusion. Left internal carotid artery: No stenosis of the extracranial segment. No dissection or occlusion. Left external carotid artery: No occlusion or stenosis of the origin. Left vertebral artery: No stenosis. No dissection or occlusion. Bones/joints: There are mild facet and marginal vertebral osteophytes without spinal stenosis or significant neural foraminal narrowing. Soft tissues: Normal. No significant soft tissue swelling. Lymph nodes: There are nonenlarged and mildly prominent multiple bilateral mediastinal lymph nodes which are nonspecific. CT/CT angio headneck* [id number] IMPRESSION: 1. No vascular stenosis, occlusion, or evidence of dissection. 2. Nonspecific mediastinal adenopathy. REFERENCES: NASCET CRITERIA. The degree of internal carotid artery stenosis is based on NASCET criteria. Normal is no stenosis. Mild is less than 50% stenosis. Moderate is 50-69% stenosis. Severe is 70% to 99% stenosis. Total occlusion is no detectable patent lumen. Radiation Dose CTDIVOL = (mGy): DLP = 4889.61~4889.61 (mGy-cm)
[2020-06-14] MEDS: iohexol 350 mg/mL 100 mL Btl IV (09:25)
[2020-06-14 09:29] LABS: Basophils % 0.7 %; Eosinophils # 0.1 10^3/uL (0.0-0.8); Eosinophils % 1.3 %; Hematocrit 53.1 % (42.0-52.0); Hemoglobin 17.7 g/dL (11.7-16.6); Lymphocytes # 0.6 10^3/uL (0.8-4.8); Lymphocytes % 10.3 %; Mean Corpuscular HGB Conc 33.3 g/dL (30.0-36.0); Mean Corpuscular Hemoglobin 30.1 pg (28.0-34.0); Mean Corpuscular Volume 90.2 fL (80-94); Mean Platelet Volume 10.9 fL (7.4-10.4); Monocytes # 0.5 10^3/uL (0.2-0.9); Monocytes % 8.9 %; Neutrophils # 4.67 10^3/uL (1.8-7.7); Neutrophils % 78.5 %; Nucleated Red Blood Cells % 0 %; Platelet Count 210 10^3/cmm (130-400); Red Blood Count 5.89 10^6/uL (4.1-5.3)
[2020-06-14 09:52] LABS: Add Urine Microscopic? NO
[2020-06-14 09:58] LABS: Bilirubin Urine Neg (Negative); Blood Urine Neg (Negative); Glucose Urine UA Norm (Normal); Ketones Urine Negative (Negative); Leukocyte Esterase Urine Negative (Negative); Nitrate Urine Negative (Negative); Protein Urine Neg (Negative); Urine Appearance Clear (CLEAR); Urine Color Yellow (Yellow); Urobilinogen Urine Norm (Negative); pH Urine 6 (5-7)
[2020-06-14 10:06] LABS: Alanine Aminotransferase 54 U/L (0-41); Albumin Level 4.5 g/dL (3.5-5.2); Alkaline Phosphatase 70 IU/L (40-130); Anion Gap 13.4 (5-19); Aspartate Amino Transferase 28 U/L (0-40); Blood Urea Nitrogen 18 mg/dL (6-20); C Reactive Protein 5.5 mg/L (0.0-4.9); Calcium 9.8 mg/dL (8.5-10.5); Carbon Dioxide 27 mmol/L (22-29); Chloride 102 mmol/L (98-107); Creatinine Clr Calc Pharmacy 137.9043; Globulin 3.3 g/dL (1.3-4.6); Glomerular Filtration Rate 83.2 mL/min (90-130); Glucose 89 mg/dL (65-115); Lactate Dehydrogenase 159 U/L (135-225); Magnesium 2.2 mg/dL (1.7-2.3); Osmolality Calculated 287 mOsm/kg (285-295); Potassium 4.4 mmol/L (3.5-5.1); Sodium 138 mmol/L (136-145); Thyroid Stimulating Hormone 3.64 uIU/mL (0.27-4.20); Total Bilirubin 0.4 mg/dL (0.15-1.2); Total Protein 7.8 g/dL (6.6-8.7)
[2020-06-14] MEDS: ketorolac 30 mg/mL INJ IVP (11:07)
[2020-06-14 11:36] VITALS: PULSE 98; RESP 18; O2SAT 99
== END 2020-06-14 11:36 | disposition home or self-care (01) ==
PROVIDERS: Emergency Provider Family Medicine; PCP Family Medicine
DX: S16.1XXA Strain of muscle, fascia and tendon at neck level, initial encounter (principal); X58.XXXA Exposure to other specified factors, initial encounter
CPT/HCPCS: 70496; 70498; 80053; 81003; 83615; 83735; 84443; 85025; 86140; 96374; 99283; J1885; Q9967

== ENCOUNTER → 2020-09-03 10:21 | Outpatient (BNVA) | payer OTHER, SELFPAY | PROVIDERS: PCP Nurse Practitioner Family; Referring Provider Nurse Practitioner Family; Visit Provider Anesthesiology Pain Medicine | DX: M54.9 Dorsalgia, unspecified (principal); M51.16 Intervertebral disc disorders with radiculopathy, lumbar region; M51.36 Other intervertebral disc degeneration, lumbar region; M47.816 Spondylosis without myelopathy or radiculopathy, lumbar region; Z79.891 Long term (current) use of opiate analgesic | CPT/HCPCS: 99205 ==

== ENCOUNTER 2021-01-29 08:43 | Emergency (ER) | payer OTHER, SELFPAY ==
[2021-01-29 08:52] VITALS: BP 158/109; PULSE 69; RESP 18; TEMP 36.7; O2SAT 100
[2021-01-29 09:03] VITALS: BP 178/106; PULSE 60; RESP 20; O2SAT 98
--- NOTE | 2021-01-29 09:05 | CT_ITS ---
WS: [id number] CT ABDOMEN PELVIS TECHNIQUE: Noncontrast CT of the abdomen and pelvis with coronal and sagittal reformatted images. CLINICAL INFORMATION: flank pain COMPARISON: CT March 15, 2020 DLP: 2157.[address] scans at [facility] use at least one of these dose optimization techniques: automated e xposure control; mA and/or kV adjustment per patient size (includes targeted exams where dose is matc hed to clinical indication); or iterative reconstruction. FINDINGS: Obstructing 3 mm left proximal ureteral calculus with a small amount of left pelvocaliectasis and pro ximal ureterectasis. Mild inflammatory stranding about the left proximal ureter. No hydronephrosis in right kidney. Right renal cyst measuring measuring 2.6 CM. Adrenal glands are no rmal. Tiny nonobstructing right renal calyceal tip calculus. 2 small noncalcified nodules left lower lobe measuring 4 mm unchanged since March 15, 2020. Normal liver. Prior cholecystectomy. Normal noncontrast spleen. Tiny esophageal hiatal hernia. Noncontrast pancreas is normal. Normal caliber abdominal aorta. A few prominent lymph nodes in the upper abdomen and paraesophageal unchanged from previous likely reactive. Prior partial sigmoid resection with anas tomosis. CT/CT kidney stone [id number] IMPRESSION: 1. Obstructing left proximal 3 mm ureteral calculus with mild left pelvocaliec tasis and ureterectasis. Mild inflammatory stranding about the left proximal ur eter. 2. No hydronephrosis in right kidney. 3. No other acute findings or significant changes from previous. Notified Josh Perez DO at 01/29/2021 9:48 AM.
[2021-01-29 09:12] VITALS: RESP 22
[2021-01-29] MEDS: morphine 4 mg/mL SDV 1 mL 8 MG IVP (09:12)
[2021-01-29] MEDS: ondansetron 2 mg/ML SDV 2 mL 4 MG IVP (09:12)
--- NOTE | 2021-01-29 09:13 | W.ED.ABDPA2 ---
HPI - Abdominal Pain General: Chief Complaint: Abdominal Pain Stated Complaint: BLOODY URINE, VOMIT, LOW ABD PAIN Time Seen by Provider: 01/29/21 08:43 History of Present Illness: MD elicited complaint: flank pain (L) Pertinent past history: none Onset (ago): hour(s) Pain Consistency: constant Location: L flank Severity: severe Quality: stabbing Radiation: suprapubic Exacerbating factors: nothing Relieving factors: nothing Associated Symptoms: Reports GI cramping, dyspepsia, hematuria, nausea, poor appetite and vomiting; Denies anorexia, belching, bloating, change in bowel habits, change in stool character, chills, coffee ground emesis, constipation, diarrhea, dysuria, excessive flatus, fever(s), heartburn, hematochezia, hematemesis, fecal incontinence, loose stools, melena and syncope Review of Systems Const: Denies: fever(s) or chills ENMT: Denies: throat pain, ear or mastoid pain, nasal discharge or nasal congestion Card: Denies: syncope Resp: Denies: dyspnea, productive cough or non-productive cough GI: Reports: nausea, vomiting and GI cramping; Denies: hematemesis, coffee ground emesis, heartburn, diarrhea, constipation, bloating, belching, excessive flatus, fecal incontinence, change in bowel habits, change in stool character, hematochezia or melena : Reports: hematuria; Denies: dysuria Skin/Breast: Denies: rash or pruritus PFSH ED PFSH: Medical History Abdominal pain Family History Denies family history of Anesthesia complication Bleeding disorder Social History Smoking and tobacco status: never smoked Physical Exam Const: COMMON NORMALS: no acute distress GENERAL APPEARANCE: cooperative and comfortable ORIENTATION/CONSCIOUSNESS: Yes awake, Yes oriented to person, Yes oriented to place and Yes oriented to time HENMT: COMMON NORMALS: normocephalic, atraumatic and hearing grossly normal bilaterally HEAD & SCALP: normocephalic and atraumatic Neck/C-Spine: COMMON NORMALS: no JVD Resp: COMMON NORMALS: normal respiratory effort, No retractions, No use of accessory muscles and clear to auscultation bilaterally AUSCULTATION: clear to auscultation bilaterally Cardio: COMMON NORMALS: no JVD, regular rate, regular rhythm and No murmurs present (Cardio) RATE: regular rate RHYTHM: regular rhythm GI: COMMON NORMALS: Soft to palpation and No hepatosplenomegaly present AUSCULTATION: Yes normoactive bowel sounds PALPATION: Yes Soft to palpation, No Tenderness to palpation present (GI), No Guarding due to palpation present (GI) and Yes No hepatosplenomegaly present : BLADDER/KIDNEY EXAM: Yes CVA tenderness Back/Pelvis: GENERAL BACK: Yes CVA tenderness CVA tenderness: left Extremity: COMMON NORMALS: normal to inspection, capillary refill normal, no clubbing, cyanosis or edema, no calf tenderness and no pedal edema Neuro: SENSORIUM/ORIENTATION: Yes oriented to person, Yes oriented to place and Yes oriented to time Skin: COMMON NORMALS: no rashes or lesions noted GENERAL SKIN EXAM: no rashes or lesions noted Course Vital Signs: Vital signs: Vital Signs Temperature 98.1 F 01/29/21 08:52 Pulse Rate 66 01/29/21 11:45 Respiratory Rate 17 01/29/21 11:45 Blood Pressure 166/103 01/29/21 11:45 Pulse Oximetry 94 01/29/21 11:45 MDM - Abdominal Pain MDM Narrative: Medical decision making narrative: Reviewed labs and imaging the patient does have a 3 mm left ureterolithiasis. We will start him on tamsulosin pain control and nausea medicines as needed. He does have a little bit of white blood cells in the urine but he also has an equal number of squamous cells he is not having burning with urination I did not start him on oral antibiotics at this point. If he has any worsening or change symptoms return. Case management will make arrangements for him to follow-up with Dr. Epps. Lab Data: Labs: Lab Results 01/29/21 01/29/21 01/29/21 09:18 09:18 10:45 WBC 4.7 10^3/uL 10^3/ uL (4.0-10.0) RBC 5.46 10^6/uL H 10 ^6/uL (4.1-5.3) Hgb 16.3 g/dL g/dL (11.7-16.6) Hct 47.6 % % (42.0-52.0) MCV 87.2 fl fl (80-94) MCH 29.9 pg pg (28.0-34.0) MCHC 34.2 g/dL g/dL (30.0-36.0) RDW 11.9 % L % (12.1-15.1) Plt Count 220 10^3/cmm 10^3 /cmm (130-400) MPV 10.0 fL fL (7.4-10.4) Neut % (Auto) 63.1 % % Lymph % (Auto) 14.2 % % [place] % (Auto) 18.2 % % Eos % (Auto) 3.0 % % Baso % (Auto) 1.1 % % Neut # (Auto) 2.98 10^3/uL 10^3 /uL (1.8-7.7) Lymph # (Auto) 0.7 10^3/uL L 10^ 3/uL (0.8-4.8) [place] # (Auto) 0.9 10^3/uL 10^3/ uL (0.2-0.9) Eos # (Auto) 0.1 10^3/uL 10^3/ uL (0.0-0.8) Baso # (Auto) 0.1 10^3/uL 10^3/ uL (0.0-0.1) Nucleated RBC % (a uto) 0 % % Nucleated RBCs # 0.0 /100WBC /100W BC Sodium 136 mmol/L mmol/L (136-145) Potassium 3.9 mmol/L mmol/L (3.5-5.1) Chloride 100 mmol/L mmol/L (98-107) Carbon Dioxide 23 mmol/L mmol/L (22-29) Anion Gap 16.9 (5-19) BUN 15 mg/dL mg/dL (6-20) Creatinine 1.0 mg/dL mg/dL (0.7-1.2) GFR Calculation 82.8 mL/min L mL/ min (90-130) Glucose 108 mg/dL mg/dL (65-115) Calculated Osmolal ity 283 mOsm/kg L mOs m/kg (285-295) Calcium 9.1 mg/dL mg/dL (8.5-10.5) Total Bilirubin 0.4 mg/dL mg/dL (0.15-1.2) AST 45 U/L H U/L (0-40) ALT 79 U/L H U/L (0-41) Alkaline Phosphata se 66 IU/L IU/L (40-130) Total Protein 6.8 g/dL g/dL (6.6-8.7) Albumin 4.5 g/dL g/dL (3.5-5.2) Globulin 2.3 g/dL g/dL (1.3-4.6) Urine Color Poppy (Yellow) Urine Appearance Cloudy (CLEAR) Urine pH 6.5 (5-7) Ur Specific Gravit y 1.020 (1.005-1.030) Urine Protein 1+ H (Negative) Urine Glucose (UA) Norm (Normal) Urine Ketones 1+ H (Negative) Urine Blood 3+ H (Negative) Urine Nitrate Negative (Negative) Urine Bilirubin 1+ H (Negative) Urine Urobilinogen 1 mg/dL H mg/dL (Negative) Ur Leukocyte Jessica ase 1+ H (Negative) Urine RBC Too numerous to c nt /hpf H /hpf (0-2) Urine WBC 5-10 /hpf H /hpf (0-5) Ur Squamous Epith Cells 5-10 /hpf H /hpf (0-5) Calcium Oxalate Cr ystal 0-4 /hpf H /hpf Amorphous Sediment Not Reportable Urine Bacteria Tr /hpf /hpf (NONE) Discharge Plan Discharge Patient Disposition: Home Clinical Impression: Nephrolithiasis Condition: Stable Prescriptions: New hydrocodone-acetaminophen 5-325 mg tablet 1 tab PO Q6H PRN (Reason: pain) Qty: 20 RF: 0 Zofran 4 mg tablet 4 mg PO Q6H PRN (Reason: nausea and vomiting) Qty: 20 RF: 0 tamsulosin 0.4 mg capsule 0.4 mg PO DAILY Qty: 30 RF: 0 No Action hydrocodone-acetaminophen 10-325 mg tablet 1 tab PO BID PRNRF: 0 levothyroxine 175 mcg Tablet 175 mcg PO DAILY RF: 0 Xyzal 5 mg Tablet 5 mg PO DAILY RF: 0 Discharge Orders: Discharge ED (Routine); Ordered 01/29/21 Ordered By: Josh Perez Referrals: Imelda Rivas [Primary Care Provider] - Discharge Diet: Usual diet Discharge Activity: Resume usual activity Patient Instructions: Opioid Safety Activity Restrictions/Additional Instructions: visual merchandising manager will call to make arrangements for a follow-up with Dr. Epps. Return to emergency room if pain is not controlled. Coding Level of Care Code ED Liner Helper for Baldemar Fwd Exam Comprehensive
[2021-01-29 09:25] LABS: Basophils # 0.1 10^3/uL (0.0-0.1); Basophils % 1.1 %; Eosinophils # 0.1 10^3/uL (0.0-0.8); Hematocrit 47.6 % (42.0-52.0); Hemoglobin 16.3 g/dL (11.7-16.6); Lymphocytes # 0.7 10^3/uL (0.8-4.8); Lymphocytes % 14.2 %; Mean Corpuscular HGB Conc 34.2 g/dL (30.0-36.0); Mean Corpuscular Hemoglobin 29.9 pg (28.0-34.0); Mean Corpuscular Volume 87.2 fl (80-94); Monocytes # 0.9 10^3/uL (0.2-0.9); Monocytes % 18.2 %; Neutrophils # 2.98 10^3/uL (1.8-7.7); Neutrophils % 63.1 %; Nucleated Red Blood Cells % 0 %; Platelet Count 220 10^3/cmm (130-400); Red Blood Count 5.46 10^6/uL (4.1-5.3); Red Cell Distribution Width 11.9 % (12.1-15.1); White Blood Count 4.7 10^3/uL (4.0-10.0)
[2021-01-29 09:52] LABS: Alanine Aminotransferase 79 U/L (0-41); Albumin Level 4.5 g/dL (3.5-5.2); Alkaline Phosphatase 66 IU/L (40-130); Anion Gap 16.9 (5-19); Aspartate Amino Transferase 45 U/L (0-40); Blood Urea Nitrogen 15 mg/dL (6-20); Calcium 9.1 mg/dL (8.5-10.5); Carbon Dioxide 23 mmol/L (22-29); Chloride 100 mmol/L (98-107); Creatinine Clr Calc Pharmacy 139.6622; Globulin 2.3 g/dL (1.3-4.6); Glomerular Filtration Rate 82.8 mL/min (90-130); Glucose 108 mg/dL (65-115); Osmolality Calculated 283 mOsm/kg (285-295); Potassium 3.9 mmol/L (3.5-5.1); Sodium 136 mmol/L (136-145); Total Bilirubin 0.4 mg/dL (0.15-1.2); Total Protein 6.8 g/dL (6.6-8.7)
[2021-01-29 10:15] VITALS: RESP 20
[2021-01-29] MEDS: HYDROmorphone 1 mg/mL INJ 1 mL IVP (10:15)
[2021-01-29] MEDS: tamsulosin 0.4 mg Capsule PO (10:15)
[2021-01-29 10:18] VITALS: BP 166/112; PULSE 52; RESP 20; O2SAT 99
[2021-01-29 10:57] LABS: Add Urine Microscopic? YES; Bilirubin Urine 1+ (Negative); Blood Urine 3+ (Negative); Glucose Urine UA Norm (Normal); Ketones Urine 1+ (Negative); Leukocyte Esterase Urine 1+ (Negative); Nitrate Urine Negative (Negative); Protein Urine 1+ (Negative); Urine Appearance Cloudy (CLEAR); Urine Color Amber (Yellow); Urobilinogen Urine 1 mg/dL (Negative); pH Urine 6.5 (5-7)
[2021-01-29 10:59] LABS: RBC Urine TOO NUMEROUS TO CNT /hpf (0-2)
[2021-01-29 11:03] LABS: Calcium Oxalate Crystals Urine 0-4 /hpf
[2021-01-29 11:04] LABS: Bacteria Urine TR /hpf
[2021-01-29 11:05] LABS: Add Urine Culture? Yes
[2021-01-29] MEDS: morphine 4 mg/mL SDV 1 mL IVP (11:38)
[2021-01-29 11:45] VITALS: BP 166/103; PULSE 66; RESP 17; O2SAT 94
--- NOTE | 2021-01-29 13:57 | DCPLANNER ---
certified energy manager had message to schedule a follow up appointment for patient with Dr. Epps. certified energy manager called the office of Dr. Epps, spoke with Peter, gave clinic patients information. certified energy manager was told that patients information would be printed and reviewed. Clinic will call patient with appointment information.
--- NOTE | 2021-02-04 13:53 | DCPLANNER ---
Patient has a follow up appointment scheduled for Tuesday, February 06, 2021 at 8:[address] Epps. Clinic will call patient with appointment information.
--- NOTE | 2021-02-12 16:23 | DCPLANNER ---
Patient had a follow up appointment scheduled for 02.06.[address] Epps - appointment cancelled patient request.
== END 2021-01-29 11:48 | disposition home or self-care (01) ==
PROVIDERS: Emergency Provider Family Medicine; PCP Nurse Practitioner Family
DX: N20.0 Calculus of kidney (principal); Z79.891 Long term (current) use of opiate analgesic
CPT/HCPCS: 74176; 80053; 81001; 85025; 87086; 96374; 96375; 96376; 99284; J1170; J2270; J2405

== ENCOUNTER 2021-07-25 16:59 | Emergency (ER) | payer OTHER, SELFPAY ==
[2021-07-25] VITALS (13 sets, daily range): BP systolic 143–186; BP diastolic 65–108; PULSE 58–85; RESP 15–22; TEMP 36.8; O2SAT 94–99; BMI 37.5
--- NOTE | 2021-07-25 17:16 | CTR_ITS ---
PROCEDURE INFORMATION: Exam: CT Head Without Contrast Exam date and time: 07/25/2021 6:01 PM Age: 40 years old Clinical indication: Altered mental status/memory loss and walking, difficulty; Confusion or disorientation; Patient HX: C/O confusion and difficulty walking; Additional info: AMS TECHNIQUE: Imaging protocol: Computed tomography of the head without contrast. Sagittal and coronal reformatted images were created and reviewed. Radiation optimization: All CT scans at this facility use at least one of these dose optimization techniques: automated exposure control; mA and/or kV adjustment per patient size (includes targeted exams where dose is matched to clinical indication); or iterative reconstruction. COMPARISON: CT angio headneck* [id number] 06/14/2020 9:29 AM RADIATION DOSE METRICS: Total DLP (mGy-cm): 907.67 FINDINGS: Brain: No acute intracranial hemorrhage. No acute infarct. No intra-axial or extra-axial masses. Perkins-white matter differentiation is preserved. No cerebral edema. No extra-axial fluid collections. No midline shift. No evidence for Chiari 1 malformation. Cerebral ventricles: No hydrocephalus. Paranasal sinuses: Visualized paranasal sinuses are clear. Mastoid air cells: Mastoid air cells are clear bilaterally. Orbital cavities: No acute abnormality in the visualized orbits. Bones/joints: No acute fracture. Soft tissues: The extracranial soft tissues are unremarkable. CT/CT head wo con* [id number] IMPRESSION: No acute abnormality of the brain.
--- NOTE | 2021-07-25 17:16 | XRR_ITS ---
PROCEDURE INFORMATION: Exam: XR Chest Exam date and time: 07/25/2021 5:50 PM Age: 40 years old Clinical indication: Pain; Chest pressure; Additional info: AMS TECHNIQUE: Imaging protocol: XR of the chest. Views: 1 view. COMPARISON: CR XR chest 2V* [id number] 05/24/2019 6:52 PM FINDINGS: Lungs: Lungs are clear bilaterally. Pleural spaces: No pleural effusion. No pneumothorax. Heart/Mediastinum: The cardiac silhouette is mildly enlarged. Mediastinal contours are unremarkable. Bones/joints: Unremarkable for age. XR/XR chest 1V portable [id number] IMPRESSION: 1. No acute cardiopulmonary process. 2. Incidental/nonacute findings are listed in the report.
--- NOTE | 2021-07-25 17:18 | ECG_ITS ---
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 Measurements Intervals [place] Rate: 67 P: 18 [place]: 182 QRS: 32 QRSD: 102 T: 15 QT: 383 QTc: 407 Interpretive Statements SINUS RHYTHM POSSIBLE LEFT ATRIAL ENLARGEMENT [-0.1mV P-WAVE IN V1/V2] SEPTAL MYOCARDIAL INFARCTION , OF INDETERMINATE AGE [40+ ms Q WAVE IN V1/V2] Compared to ECG 03/15/2020 08:46:04 Myocardial infarct finding now present Electronically Signed On 07-26-2021 8:15:02 CDT by Chris Ray M.D. [id number]
[2021-07-25] MEDS: sodium chloride 0.9% 1,000 ML 999 ML IV ×2 (17:33→17:41)
[2021-07-25 17:34] LABS: Basophils # 0.1 10^3/uL (0.0-0.1); Basophils % 1.1 %; Eosinophils # 0.1 10^3/uL (0.0-0.8); Eosinophils % 1.1 %; Hematocrit 47.6 % (42.0-52.0); Hemoglobin 16.4 g/dL (11.7-16.6); Lymphocytes # 0.8 10^3/uL (0.8-4.8); Lymphocytes % 10.8 %; Mean Corpuscular HGB Conc 34.5 g/dL (30.0-36.0); Mean Platelet Volume 10.5 fL (7.4-10.4); Monocytes # 0.9 10^3/uL (0.2-0.9); Monocytes % 11.7 %; Nucleated Red Blood Cells % 0 %; Platelet Count 223 10^3/cmm (130-400); Red Blood Count 5.47 10^6/uL (4.1-5.3); Red Cell Distribution Width 12.3 % (12.1-15.1); White Blood Count 7.6 10^3/uL (4.0-10.0)
[2021-07-25 18:12] LABS: Alanine Aminotransferase 68 U/L (0-41); Albumin Level 4.1 g/dL (3.5-5.2); Alkaline Phosphatase 60 IU/L (40-130); Anion Gap 16.6 (5-19); Aspartate Amino Transferase 72 U/L (0-40); Blood Urea Nitrogen 12 mg/dL (6-20); Calcium 9.3 mg/dL (8.5-10.5); Carbon Dioxide 23 mmol/L (22-29); Chloride 103 mmol/L (98-107); Globulin 3.1 g/dL (1.3-4.6); Glomerular Filtration Rate 74.1 mL/min (90-130); Glucose 92 mg/dL (65-115); Lipase 38 U/L (13-60); Osmolality Calculated 287 mOsm/kg (285-295); Potassium 3.6 mmol/L (3.5-5.1); Sodium 139 mmol/L (136-145); Total Bilirubin 0.6 mg/dL (0.15-1.2); Total Protein 7.2 g/dL (6.6-8.7)
[2021-07-25 18:13] LABS: Troponin(5th) Baseline 11 ng/L (0-15)
[2021-07-25 18:16] LABS: Acetaminophen < 5.0 ug/mL (10-30); Salicylate < 0.3 mg/dL (3-10)
--- NOTE | 2021-07-25 18:27 | W.ED.GENADLT ---
HPI - General Adult General: Chief complaint: Chest Pain Stated complaint: weakness; sick Time Seen by Provider: 07/25/21 17:07 History of Present Illness: Patient is a 40-year-old male with a history of hypothyroidism who presents the emergency room for concerns for transient altered mental status syncope and collapse. Per patient, he has been severely depressed since his and daughter left him a few days ago. Patient has not been able to sleep or eat. 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 Patient was found down by his father in the barn. Patient denies any pain or injury. Patient reports that he is very feeling very depressed. His father tells me that patient was planning to take his life today. Patient denies any homicidal ideation, auditory hallucination or visual hallucination. Patient has no other focal medical complaints other than intermittent ongoing chest pain lasting for few seconds at a time. Onset:1 hr ago Duration:once Location:home Severity:moderate/severe Associated symptoms: Reports chest pain; Deny dyspnea, nausea, rash, palpitations or vomiting Review of Systems Const: Reports: fatigue and other (+generalized weakness, insomnia); Denies: fever(s) or chills Eyes: Denies: change in vision ENMT: Denies: mouth pain Card: Reports: chest pain; Denies: palpitations Resp: Denies: dyspnea or non-productive cough GI: Denies: abdominal pain, nausea, vomiting or diarrhea : Denies: dysuria Musc: Denies: extremity pain Skin/Breast: Denies: rash or new lesions Neuro: Denies: weakness in extremities Psych: Reports: depression Natan/Lymph: Denies: easy bruising PFSH ED PFSH: Medical History (Updated 07/25/21 @ 19:02 by Stepan Dewey MD) Abdominal pain Hypothyroidism Family History Denies family history of Anesthesia complication Bleeding disorder Social History (Updated 07/25/21 @ 19:05 by Stepan Dewey MD) Smoking and tobacco status: never smoked Alcohol intake: never Substance/Drug Use: never Physical Exam Const: COMMON NORMALS: alert HENMT: COMMON NORMALS: atraumatic HEAD & SCALP: atraumatic MOUTH: moist mucous membranes not abnormal Eye: COMMON NORMALS: EOMs intact bilaterally and conjunctivae normal CONJUNCTIVA: Yes conjunctivae normal Neck/C-Spine: COMMON NORMALS: full ROM and supple Resp: COMMON NORMALS: normal respiratory effort and clear to auscultation bilaterally AUSCULTATION: clear to auscultation bilaterally Cardio: COMMON NORMALS: regular rate RATE: regular rate OTHER: 2+ radial pulses GI: COMMON NORMALS: Soft to palpation and non-tender PALPATION: Yes Soft to palpation OTHER: No focal TTP. NO guarding rebound, guarding, rigidity. No CVA tenderness to percussion. Neg Pina/Neg McBurney's point tenderness, no suprabupic tenderness to palpation. Extremity: COMMON NORMALS: full ROM Neuro: SENSORIUM/ORIENTATION: Yes alert MOTOR EXAM: No Abnormal motor strength present and Other motor observations present (no focal motor deficits) OTHER: + Moving all extremities, cranial nerves II through XII grossly intact, strength 5 out of 5 in all extremity, sensation intact in all extremities Psych: COMMON NORMALS: speech normal SPEECH: Yes normal speech MOOD & AFFECT: Yes depressed mood Course Vital Signs: Vital signs: Vital Signs Temperature 98.3 F 07/25/21 17:28 Pulse Rate 58 L 07/25/21 19:30 Respiratory Rate 15 07/25/21 19:30 Blood Pressure 168/105 07/25/21 19:30 Pulse Oximetry 97 07/25/21 19:30 [facility] - General Adult Medical Decision Making 40-year-old male with a history of hypothyroidism presenting to the emergency room for syncope and collapse in the setting of decreased p.o. intake and insomnia in the last few days. Patient is dealing with severe depression and there is concern for possible suicidality according to father. Patient is hemodynamically stable without any focal neurological findings. Troponin x2 within normal limit. EKG is nonischemic. X-ray chest negative for any acute finding. CT head negative for any brain bleed or any other acute intracranial pathology. Patient received 2 L of fluid and Vistaril for anxiety. Dimer wnl. Doubt ACS/PE or other emergent causes of chest pain. No suspicion for aortic dissection given no widened mediastinum, 2+ upper extremity pulses, or tearing pain. No suspicion for PE given no pleuritic chest pain, recent immobilization or surgery/hemoptysis, or other VTE risk factors. EKG is non-ischemic. XR normal. Case was discussed with Dr. Ramires who agreed to admit patient for NPU and close inpatient observation. We will send serial troponins given the fact the patient presented with syncope and chest pain. Dr. Major will follow patient and be consulted for evaluation of chest pain while patient is admitted for suicidal ideation. Disposition: admission Lab Data : 07/25/21 17:11 07/25/21 17:38 Radiology Impressions Chest X-Ray 07/25/21 17:16 IMPRESSION: 1. No acute cardiopulmonary process. 2. Incidental/nonacute findings are listed in the report. Head CT 07/25/21 17:16 IMPRESSION: No acute abnormality of the brain. Laboratory Results WBC 7.6 10^3/uL (4.0-10.0) 07/25/21 17:11 RBC 5.47 10^6/uL (4.1-5.3) H 07/25/21 17:11 Hgb 16.4 g/dL (11.7-16.6) 07/25/21 17:11 Hct 47.6 % (42.0-52.0) 07/25/21 17:11 MCV 87.0 fl (80-94) 07/25/21 17:11 MCH 30.0 pg (28.0-34.0) 07/25/21 17:11 MCHC 34.5 g/dL (30.0-36.0) 07/25/21 17:11 RDW 12.3 % (12.1-15.1) 07/25/21 17:11 Plt Count 223 10^3/cmm (130-400) 07/25/21 17:11 MPV 10.5 fL (7.4-10.4) H 07/25/21 17:11 Neut % (Auto) 75.0 % 07/25/21 17:11 Lymph % (Auto) 10.8 % 07/25/21 17:11 [place] % (Auto) 11.7 % 07/25/21 17:11 Eos % (Auto) 1.1 % 07/25/21 17:11 Baso % (Auto) 1.1 % 07/25/21 17:11 Neut # (Auto) 5.70 10^3/uL (1.8-7.7) 07/25/21 17:11 Lymph # (Auto) 0.8 10^3/uL (0.8-4.8) 07/25/21 17:11 [place] # (Auto) 0.9 10^3/uL (0.2-0.9) 07/25/21 17:11 Eos # (Auto) 0.1 10^3/uL (0.0-0.8) 07/25/21 17:11 Baso # (Auto) 0.1 10^3/uL (0.0-0.1) 07/25/21 17:11 Nucleated RBC % (auto) 0 % 07/25/21 17:11 Nucleated RBCs # 0.0 /100WBC 07/25/21 17:11 D-Dimer 0.17 ug/mIFEU (0-0.59) 07/25/21 19:41 Sodium 139 mmol/L (136-145) 07/25/21 17:38 Potassium 3.6 mmol/L (3.5-5.1) 07/25/21 17:38 Chloride 103 mmol/L (98-107) 07/25/21 17:38 Carbon Dioxide 23 mmol/L (22-29) 07/25/21 17:38 Anion Gap 16.6 (5-19) 07/25/21 17:38 BUN 12 mg/dL (6-20) 07/25/21 17:38 Creatinine 1.1 mg/dL (0.7-1.2) 07/25/21 17:38 GFR Calculation 74.1 mL/min (90-130) L 07/25/21 17:38 Glucose 92 mg/dL (65-115) 07/25/21 17:38 Calculated Osmolality 287 mOsm/kg (285-295) 07/25/21 17:38 Calcium 9.3 mg/dL (8.5-10.5) 07/25/21 17:38 Total Bilirubin 0.6 mg/dL (0.15-1.2) 07/25/21 17:38 AST 72 U/L (0-40) H 07/25/21 17:38 ALT 68 U/L (0-41) H 07/25/21 17:38 Alkaline Phosphatase 60 IU/L (40-130) 07/25/21 17:38 Troponin T Baseline 11 ng/L (0-15) 07/25/21 17:38 Troponin T 120 Minute 11.52 ng/L (0-15) 07/25/21 19:11 Delta Troponin T Not Reportable 07/25/21 19:11 Total Protein 7.2 g/dL (6.6-8.7) 07/25/21 17:38 Albumin 4.1 g/dL (3.5-5.2) 07/25/21 17:38 Globulin 3.1 g/dL (1.3-4.6) 07/25/21 17:38 Lipase 38 U/L (13-60) 07/25/21 17:38 Urine Color Yellow (Yellow) 07/25/21 18:46 Urine Appearance Clear (CLEAR) 07/25/21 18:46 Urine pH 6.5 (5-7) 07/25/21 18:46 Ur Specific [place] 1.010 (1.005-1.030) 07/25/21 18:46 Urine Protein Neg (Negative) 07/25/21 18:46 Urine Glucose (UA) Norm (Normal) 07/25/21 18:46 Urine Ketones Negative (Negative) 07/25/21 18:46 Urine Blood Neg (Negative) 07/25/21 18:46 Urine Nitrate Negative (Negative) 07/25/21 18:46 Urine Bilirubin Neg (Negative) 07/25/21 18:46 Urine Urobilinogen Norm mg/dL (Negative) 07/25/21 18:46 Ur Leukocyte Esterase Negative (Negative) 07/25/21 18:46 Salicylates < 0.3 mg/dL (3-10) L 07/25/21 17:38 Urine Opiates Screen Negative ng/mL (Negative) 07/25/21 18:46 Acetaminophen < 5.0 ug/mL (10-30) L 07/25/21 17:38 Ur Barbiturates Screen Negative ng/mL (Negative) 07/25/21 18:46 Ur Phencyclidine Scrn Negative ng/mL (Negative) 07/25/21 18:46 Ur Amphetamines Screen Negative ng/mL (Negative) 07/25/21 18:46 U Benzodiazepines Scrn Negative ng/mL (Negative) 07/25/21 18:46 Urine Cocaine Screen Negative ng/mL (Negative) 07/25/21 18:46 U Marijuana (THC) Screen Negative ng/mL (Negative) 07/25/21 18:46 Imaging Data Other Imaging: Radiologist's impression: [address] [place] [address] CT Scan Report Signed Patient: Shade Ribeiro Unit #: [id number] : 1980 Age/Sex: 40 / M ADM Date: 07/25/21 Loc: ER Room/Bed: Attending Dr: Ordering Provider/Ordering MD: Stepan Dewey MD Date of Service: 07/25/21 Procedure(s): CT head wo con* [id number] Accession Number(s): [id number] Report Number: [id number] PROCEDURE INFORMATION: Exam: CT Head Without Contrast Exam date and time: 07/25/2021 6:01 PM Age: 40 years old Clinical indication: Altered mental status/memory loss and walking, difficulty; Confusion or disorientation; Patient HX: C/O confusion and difficulty walking; Additional info: AMS TECHNIQUE: Imaging protocol: Computed tomography of the head without contrast. Sagittal and coronal reformatted images were created and reviewed. Radiation optimization: All CT scans at this facility use at least one of these dose optimization techniques: automated exposure control; mA and/or kV adjustment per patient size (includes targeted exams where dose is matched to clinical indication); or iterative reconstruction. COMPARISON: CT angio headneck* [id number] 06/14/2020 9:29 AM RADIATION DOSE METRICS: Total DLP (mGy-cm): 907.67 FINDINGS: Brain: No acute intracranial hemorrhage. No acute infarct. No intra-axial or extra-axial masses. Perkins-white matter differentiation is preserved. No cerebral edema. No extra-axial fluid collections. No midline shift. No evidence for Chiari 1 malformation. Cerebral ventricles: No hydrocephalus. Paranasal sinuses: Visualized paranasal sinuses are clear. Mastoid air cells: Mastoid air cells are clear bilaterally. Orbital cavities: No acute abnormality in the visualized orbits. Bones/joints: No acute fracture. Soft tissues: The extracranial soft tissues are unremarkable. CT/CT head wo con* [id number] IMPRESSION: No acute abnormality of the brain. ? Dictated By: Cammy Albert MD Signed By: Cammy Albert MD Signed Date/Time: 07/25/211857 DD/ [address] [address] XRay Report Signed Patient: Shade Ribeiro Unit #: [id number] : 1980 Age/Sex: 40 / M ADM Date: 07/25/21 Loc: ER Room/Bed: Attending Dr: Ordering Provider/Ordering MD: Stepan Dewey MD Date of Service: 07/25/21 Procedure(s): XR chest 1V portable [id number] Accession Number(s): [id number] Report Number: [id number] PROCEDURE INFORMATION: Exam: XR Chest Exam date and time: 07/25/2021 5:50 PM Age: 40 years old Clinical indication: Pain; Chest pressure; Additional info: AMS TECHNIQUE: Imaging protocol: XR of the chest. Views: 1 view. COMPARISON: CR XR chest 2V* [id number] 05/24/2019 6:52 PM FINDINGS: Lungs: Lungs are clear bilaterally. Pleural spaces: No pleural effusion. No pneumothorax. Heart/Mediastinum: The cardiac silhouette is mildly enlarged. Mediastinal contours are unremarkable. Bones/joints: Unremarkable for age. XR/XR chest 1V portable [id number] IMPRESSION: 1. No acute cardiopulmonary process. 2. Incidental/nonacute findings are listed in the report. ? Dictated By: Cammy Albert MD Signed By: Cammy Albert MD Signed Date/Time: 07/25/211854 DD/ 175 Discharge Plan Discharge Patient Disposition: Admitted As Inpatient Clinical Impression: Depression with suicidal ideation, Chest pain, Syncope and collapse Condition: Stable Coding Level of Care Code ED Clinical Nursing Director for Chg Fwd Exam Comprehensive
[2021-07-25 18:51] LABS: Add Urine Microscopic? NO; Charge for UA Resulting for Rev
[2021-07-25 18:59] LABS: Bilirubin Urine Neg (Negative); Blood Urine Neg (Negative); Glucose Urine UA Norm (Normal); Ketones Urine Negative (Negative); Leukocyte Esterase Urine Negative (Negative); Nitrate Urine Negative (Negative); Protein Urine Neg (Negative); Urine Appearance Clear (CLEAR); Urine Color Yellow (Yellow); Urobilinogen Urine Norm (Negative); pH Urine 6.5 (5-7)
--- NOTE | 2021-07-25 19:00 | PC.NURSE ---
190 assumed pt care from Noam LUNDBERG
[2021-07-25 19:06] LABS: Amphetamines Screen Urine Negative (Negative); Barbiturates Screen Urine Negative (Negative); Benzodiazepines Screen Urine Negative (Negative); Cocaine Screen Urine Negative (Negative); Opiate Screen Urine Negative (Negative); PCP Screen Urine Negative (Negative); THC Screen Urine Negative (Negative)
[2021-07-25] MEDS: hyDROXYzine 25 mg Capsule 50 MG PO (19:12)
--- NOTE | 2021-07-25 19:18 | ECG_ITS ---
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 Measurements Intervals [place] Rate: 56 P: 37 [place]: 186 QRS: 57 QRSD: 100 T: 16 QT: 413 QTc: 402 Interpretive Statements SINUS BRADYCARDIA WITH SINUS ARRHYTHMIA Compared to ECG 07/25/2021 17:13:00 Sinus rhythm no longer present Myocardial infarct finding no longer present Electronically Signed On 07-26-2021 8:23:43 CDT by Chris Ray M.D. [email or web address] east los angelesApprats/store/[id number]
[2021-07-25 19:48] LABS: Troponin 5 2HR 11.52 ng/L (0-15)
[2021-07-25 19:58] LABS: D Dimer 0.17 ug/mIFEU (0-0.59)
--- NOTE | 2021-07-25 20:37 | PM.CONSULT ---
Providers/Reason For Consult Consulting Physician/Specialty*: hospitalist Reason for Consult*: chest pain Primary Care Provider: Imelda Rivas History of Present Illness History of Present Illness Shade Ribeiro is a 40 year old male with a past medical history of thyroid nodule, lost to follow-up, hypothyroidism, anxiety and depression, history of back pain, history of nephrolithiasis, who presents to [facility] for chest pain and concerns for lightheadedness and dizziness. On admission patient had concerns for suicidal ideation, will be admitted to n.p.o., monitored in the ER for 24 hours, Dr. Ramires to see in the morning. Hospitalist team was called for patient's initial complaints of chest pain. Patient denies a prior history of chest pain, no significant family history of CAD, does use chewing tobacco, he tells me that for the last few days he has been developing substernal chest pain. Nonradiating, associate with chest palpitations, shortness of breath, no diaphoresis, lasting a few seconds to few minutes, he tells me that he has been going through a lot of anxiety, a lot of depression symptoms due to marital issues, he is very emotional. He tells me that due to his marital issues with his and his daughter, he is been developing a lot of chest palpitations, feeling lightheaded and dizzy, and developing chest pain. In the emergency room, his baseline troponin was within normal limits, EKG no acute ST-T wave changes, lipase within normal limits, urine drug screening and within normal limits, TSH pending, alert oriented x3, head CT within normal limits Review of Systems Const: Denies: fever(s) Eyes: Denies: change in vision Card: Reports: chest pain and palpitations Resp: Denies: dyspnea, productive cough, non-productive cough or wheezing GI: Denies: abdominal pain, nausea, vomiting or melena : Denies: flank pain or dysuria Skin/Breast: Denies: rash Neuro: Reports: dizziness; Denies: headache(s), numbness in extremities or weakness in extremities Psych: Reports: anxiety, depression and suicidal ideation Medications/Allergies Home Medications Medication Instructions Recorded Confirmed Last Taken Type levocetirizine 5 mg tablet (Xyzal) 5 mg PO DAILY 06/30/20 02/03/21 Unknown History levothyroxine 175 mcg tablet 175 mcg PO DAILY 06/30/20 02/03/21 Unknown History hydrocodone 10 mg-acetaminophen 1 tab PO BID PRN 09/03/20 02/03/21 Unknown History 325 mg tablet hydrocodone 5 mg-acetaminophen 325 1 tab PO Q6H PRN #20 tab 01/29/21 02/03/21 Unknown Rx mg tablet ondansetron HCl 4 mg tablet 4 mg PO Q6H PRN #20 tab 01/29/21 02/03/21 Unknown Rx (Zofran) tamsulosin 0.4 mg capsule 0.4 mg PO DAILY #30 cap 01/29/21 02/03/21 Unknown Rx Allergies Allergy/AdvReac Type Severity Reaction Status Date / Time alprazolam [From Xanax] Allergy ALGY-Anaphy Verified 02/03/21 13:50 laxis codeine Allergy ALGY-Anaphy Verified 02/03/21 13:50 laxis lorazepam [From Ativan] Allergy ADR-Halluci Verified 02/03/21 13:50 nating NSAIDS (Non-Steroidal Allergy ADR-Gastrointestinal Verified 07/25/21 17:07 Anti-Inflamma Upset Sulfa (Sulfonamide Allergy ALGY-Hives Verified 02/03/21 13:50 Antibiotics) tramadol Allergy Unknown Verified 02/03/21 13:50 PFSH Acute PFSH: Medical History (Updated 07/25/21 @ 19:02 by Stepan Dewey MD) Abdominal pain Hypothyroidism Surgical History (Updated 07/25/21 @ 20:42 by Doug Major MD) History of appendectomy History of colon resection (~2011) History of colonoscopy (~2013) History of laparoscopic cholecystectomy (~2013) Family History Denies family history of Anesthesia complication Bleeding disorder Social History (Updated 07/25/21 @ 19:05 by Stepan Dewey MD) Smoking and tobacco status: never smoked Alcohol intake: never Substance/Drug Use: never Vitals/I&O/Wt Last Vital Signs Temp 98.3 F 07/25/21 17:28 Pulse 58 L 07/25/21 19:30 Resp 15 07/25/21 19:30 BP 168/105 07/25/21 19:30 Pulse Ox 97 07/25/21 19:30 04/3007/25/21 07/25/21 06:59 14:59 22:59 Intake Total 1133.2 / 1133.2 Balance 1133.2 / 1133.2 Weight last 48 hrs Weight 129.274 kg Physical Exam Const: COMMON NORMALS: no acute distress and patient oriented x3 HENMT: COMMON NORMALS: normocephalic HEAD & SCALP: normocephalic Eye: COMMON NORMALS: Equal, round and reactive pupils present and EOMs intact bilaterally PUPIL: Yes Equal, round and reactive pupils present Neck/C-Spine: COMMON NORMALS: no JVD OTHER: Thyroid nodule palpated Resp: COMMON NORMALS: normal respiratory effort, No retractions, No use of accessory muscles and clear to auscultation bilaterally AUSCULTATION: clear to auscultation bilaterally Cardio: COMMON NORMALS: no JVD, regular rate, regular rhythm, S1 normal heart sound present and S2 normal heart sound present RATE: regular rate RHYTHM: regular rhythm HEART SOUNDS: S1 normal heart sound present and S2 normal heart sound present GI: COMMON NORMALS: Normal to inspection, nondistended, normoactive bowel sounds present, Soft to palpation, non-tender, No hepatosplenomegaly present, no masses and no bruits PALPATION: Yes Soft to palpation and Yes No hepatosplenomegaly present Extremity: COMMON NORMALS: capillary refill normal, no clubbing, cyanosis or edema, no calf tenderness and no pedal edema Neuro: COMMON NORMALS: patient oriented x3, CN's II-XII intact bilaterally, moves all extremities, no focal motor deficits and no sensory deficits noted Psych: COMMON NORMALS: mental status grossly normal Data : 07/25/21 17:11 07/25/21 17:38 A&P Assessment and plan (1) Chest pain: Status: Acute (2) Depression with suicidal ideation: Status: Acute Plan chest pain -doesn't sound cardiac in nature -likely related to anxiety -serial ekg, serial troponin, cardiac echo -monitor for chest pain -telemetry -aspirin, statin, nitro prn for chest pain for now, can discountinue on discharge -lovenox for dvt prophylaxis -full code depression with suicidal ideation -psychology on consult Consult Attestations Medical Necessity Statement: patient requires hospitalization for chest pain, suicidal ideation, outpatient with observation Coding Level of Care Code Acute Coiler Operator for [facility] Fwd Diagnoses Chest pain R07.9 Depression with suicidal ideation F32.A; R45.851
[2021-07-25 21:10] LABS: Alcohol Level < 10 mg/dL (0-10); Thyroid Stimulating Hormone 1.89 uIU/mL (0.27-4.20)
--- NOTE | 2021-07-25 23:18 | ECG_ITS ---
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 Measurements Intervals [place] Rate: 58 P: 30 [place]: 186 QRS: -7 QRSD: 99 T: 23 QT: 386 QTc: 381 Interpretive Statements SINUS BRADYCARDIA Compared to ECG 07/25/2021 19:09:06 Sinus arrhythmia no longer present Electronically Signed On 07-26-2021 8:24:24 CDT by Chris Ray M.D. [id number]
[2021-07-25] MEDS: diphenhydrAMINE 50 mg Capsule PO (23:28)
[2021-07-26] VITALS (8 sets, daily range): BP systolic 126–180; BP diastolic 68–102; PULSE 51–72; RESP 14–18; TEMP 36.6–37.4; O2SAT 92–97
[2021-07-26 00:19] LABS: Troponin 5 6HR 12.53 ng/L (0-15)
--- NOTE | 2021-07-26 02:19 | PC.NURSE ---
0200 Dr Manzanares agreed to changing VS documentation to q2 hour. Pt unable to sleep with the monitoring equipment on. He states he has not slept in 3 days and he can't take it.
[2021-07-26 06:44] LABS: Glucose Point of Care 93 mg/dL (70-110)
--- NOTE | 2021-07-26 09:25 | P.PN_ITS ---
Subjective Subjective: Reports that he has been chest pain-free through the night. States he has had no further issues. He states that he is overall doing much better and feels ready to return home. 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 He a sked me about going home several times. Discussed that I would not be making a decision, however, I would pass on the message. However, discussed with him the concern that he had gotten himself to the point of exhaustion and collapse, and with concern expressed by his family. 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 Returning to the chest discomfort he had experienced, he states that he was at that time when he was generally weak, had a feeling of rising discomfort from epigastric area up in the middle of his chest. Denies heartburn, as he states he notes heartburn as he takes Pepcid, denies persistent chest pain. Denies chest pain with laying back. Denies any radiation or specific triggers. Has not had any chest pain with exertion. Discussed with him noted mild sinus bradycardia. Discussed results of other car diac studies which were otherwise unremarkable. Vitals/I&O/Wt Last Vital Signs Temp 98 F 07/26/21 07:27 Pulse 51 L 07/26/21 07:27 Resp 16 07/26/21 07:27 BP 169/101 07/26/21 07:27 Pulse Ox 92 07/26/21 07:27 07/25/21 07/26/21 07/26/21 22:59 06:59 14:59 Intake Total 1133.2 / 1133.2 Balance 1133.2 / 1133.2 Weight last 48 hrs Weight 129.274 kg Physical Exam Const: COMMON NORMALS: alert GENERAL APPEARANCE: cooperative NUTRITIONAL APPEARANCE: obese ORIENTATION/CONSCIOUSNESS: Yes awake HENMT: COMMON NORMALS: normocephalic, EAC's normal, Normal external nose present and moist oral mucous membranes HEAD & SCALP: normocephalic NOSE: Normal external nose present EXTERNAL AUDITORY CANAL: EAC's normal OTHER: Strabismus Neck/C-Spine: COMMON NORMALS: no meningeal signs Chest: CHEST: Yes Symmetrical chest wall rise Resp: COMMON NORMALS: clear to auscultation bilaterally AUSCULTATION: clear to auscultation bilaterally Cardio: COMMON NORMALS: regular rate, regular rhythm and No murmurs present (Cardio) RATE: regular rate RHYTHM: regular rhythm GI: COMMON NORMALS: Normal to inspection, nondistended, normoactive bowel sounds present, Soft to palpation and non-tender PALPATION: Yes Soft to palpation Extremity: COMMON NORMALS: no pedal edema Neuro: COMMON NORMALS: moves all extremities SENSORIUM/ORIENTATION: Yes alert MENINGEAL SIGNS: Yes no meningeal signs Psych: COMMON NORMALS: mental status grossly normal Skin: COMMON NORMALS: no wounds RASHES: no rashes Data : 07/25/21 17:11 07/25/21 17:38 A&P Assessment and plan (1) Chest pain: Atypical chest pain, resolved. No suggestion of acute VA. Chest x-ray unremarkable. D-dimer normal. No respiratory symptoms, saturating in the 90s on room air. Noted mild sinus bradycardia, but also seen back in January. He does describe some palpitations at that time of chest discomfort episode also during the generalized weakness, consideration to outpatient event monitor may be given. 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 Discussed also with psychiatry. Status: Acute (2) Depression with suicidal ideation: Pending additional evaluation. Status: Acute Attestations Medical Necessity Statement*: Hospitalized for additional assessment of depression with suicidal ideation. 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
== END 2021-07-26 11:30 | disposition home or self-care (01) ==
PROVIDERS: Family Medicine; Emergency Provider Emergency Medicine; PCP Nurse Practitioner Family
DX: F32.A Depression, unspecified (principal); R07.9 Chest pain, unspecified; R45.851 Suicidal ideations; R55 Syncope and collapse; R00.2 Palpitations; F41.9 Anxiety disorder, unspecified; E03.9 Hypothyroidism, unspecified; F17.220 Nicotine dependence, chewing tobacco, uncomplicated; Z63.0 Problems in relationship with spouse or partner; Z79.891 Long term (current) use of opiate analgesic
CPT/HCPCS: 36416; 70450; 71045; 80053; 80306; 80307; 81003; 82962; 83690; 83735; 84443; 84484; 85025; 85378; 93005; 96360; 99284; J7030; Q0163